=== PATIENT | female | born 1965 | race Caucasian/White ===

== ENCOUNTER 2021-06-22 09:42 | Outpatient (CLI) | payer OTHER, SELFPAY ==
[2021-06-22 10:00] LABS: Hematocrit 41.6 % (35.0-49.0); Mean Corpuscular HGB Conc 33.7 g/dL (32.0-36.0); Mean Corpuscular Hemoglobin 33.2 pg (27.0-31.0); Mean Corpuscular Volume 98.6 fL (78.0-102.0); Mean Platelet Volume 9.3 fl (9.2-11.8); Platelet Count Result 293 K/mm3 (150-420); Red Blood Count 4.22 M/mm3 (4.20-5.40); Red Cell Distribution Width 11.9 % (11.6-14.4)
[2021-06-22 10:41] LABS: Alanine Aminotransferase 19 U/L (14-59); Albumin Level 4.2 g/dL (3.4-5.0); Alkaline Phosphatase 81 U/L (46-116); Anion Gap 9 mmol/L (8-16); Aspartate Amino Transferase 15 U/L (15-37); Bilirubin,Total 0.4 mg/dL (0.00-1.00); Blood Urea Nitrogen 12 mg/dL (7-18); Calcium 9.4 mg/dL (8.5-10.1); Carbon Dioxide 31 mmol/L (21-32); Chloride 101 mmol/L (98-108); Cholesterol 239 mg/dL (0-200); Estimated Glomerular Filt Rate > 60; Glucose 112 mg/dL (70-99); HDL Direct 56 mg/dL (40-60); LDL Cholesterol Calculated 148 mg/dL (<130); Osmolality Calculated 292 mOsm/kg (285-295); Potassium 3.7 mmol/L (3.5-5.1); Sodium 141 mmol/L (136-145); Total Protein 7.3 g/dL (6.4-8.2); Triglycerides 175 mg/dL (0-150)
== END 2021-06-22 09:43 | disposition home or self-care (01) ==
LOC: CHSLAB 09:44
PROVIDERS: PCP Family Medicine; Visit Provider Family Medicine
DX: Z00.00 Encounter for general adult medical examination without abnormal findings (principal)
CPT/HCPCS: 36415; 80053; 80061; 85027

== ENCOUNTER 2021-11-04 12:38 | Outpatient (CLI) | payer OTHER, SELFPAY | END 2021-11-04 12:39 | disposition home or self-care (01) | PROVIDERS: PCP Family Medicine; Visit Provider Family Medicine | DX: H90.5 Unspecified sensorineural hearing loss (principal) | CPT/HCPCS: 92557; 92567 ==

== ENCOUNTER 2021-11-20 08:59 | Outpatient (RCR) | payer SELFPAY | END 2022-02-18 23:59 | disposition home or self-care (01) | LOC: ANHBWCAUD 08:59 | PROVIDERS: PCP Family Medicine; Visit Provider Family Medicine | DX: Z46.1 Encounter for fitting and adjustment of hearing aid (principal) | CPT/HCPCS: V5264 ==

== ENCOUNTER 2022-02-03 08:15 | Outpatient (RCR) | payer OTHER, SELFPAY | END 2022-05-04 23:59 | disposition home or self-care (01) | LOC: CHSAUDIO 08:15 | PROVIDERS: PCP Family Medicine; Visit Provider Family Medicine | DX: Z46.1 Encounter for fitting and adjustment of hearing aid (principal); H90.5 Unspecified sensorineural hearing loss | CPT/HCPCS: 92593 ==

== ENCOUNTER 2022-12-21 09:28 | Outpatient (CLI) | payer OTHER, SELFPAY ==
--- NOTE | 2022-12-21 09:49 | ECG_ITS ---
Measurements Intervals [place] Rate: 66 P: 87 [place]: 148 QRS: 88 QRSD: 74 T: 106 QT: 416 QTc: 438 Interpretive Statements SINUS RHYTHM CANNOT RULE OUT SEPTAL INFARCT, AGE INDETERMINATE T WAVE ABNORMALITY IN ANTEROLAT/HIGH LAT LEADS- CONSIDER ISCHEMIA ABNORMAL ECG NO PREVIOUS ECG AVAILABLE FOR COMPARISON Electronically Signed On 12-21-2022 12:30:53 CDT by Chavez Olson D.O.
[2022-12-21 09:56] LABS: Basophils Absolute Auto 0.13 K/mm3 (0.00-0.10); Basophils Percent Auto 0.9 % (0.0-1.0); Eosinophils Absolute Auto 1.36 K/mm3 (0.02-0.50); Eosinophils Percent Auto 9.2 % (1.0-6.0); Hematocrit 45.5 % (35.0-49.0); Hemoglobin 15.2 g/dL (12.0-15.0); Immature Granulocyte Absolute 0.05 K/mm3 (0.00-0.00); Immature Granulocyte Percent A 0.3 % (0.0-0.0); Lymphocytes Absolute Auto 3.76 K/mm3 (1.10-4.50); Lymphocytes Percent Auto 25.5 % (18.0-42.0); Mean Corpuscular HGB Conc 33.4 g/dL (32.0-36.0); Mean Corpuscular Hemoglobin 33.3 pg (27.0-31.0); Mean Corpuscular Volume 99.6 fL (78.0-102.0); Mean Platelet Volume 9.6 fl (9.2-11.8); Monocytes Absolute Auto 0.97 K/mm3 (0.10-0.90); Monocytes Percent Auto 6.6 % (2.0-11.0); Neutrophils Absolute Auto 8.5 K/mm3 (1.7-7.2); Neutrophils Percent Auto 57.5 % (50.0-70.0); Platelet Count Result 286 K/mm3 (150-420); Red Blood Count 4.57 M/mm3 (4.20-5.40); Red Cell Distribution Width 12.3 % (11.6-14.4); White Blood Count 14.7 K/mm3 (4.8-10.8)
[2022-12-21 10:26] LABS: Alanine Aminotransferase 24 U/L (14-59); Albumin Level 4.1 g/dL (3.4-5.0); Alkaline Phosphatase 76 U/L (46-116); Anion Gap 9 mmol/L (8-16); Aspartate Amino Transferase 18 U/L (15-37); Bilirubin,Total 1.5 mg/dL (0.00-1.00); Blood Urea Nitrogen 13 mg/dL (7-18); Calcium 9.6 mg/dL (8.5-10.1); Carbon Dioxide 30 mmol/L (21-32); Chloride 101 mmol/L (98-108); Cholesterol 160 mg/dL (0-200); Estimated Glomerular Filt Rate 60; Glucose 106 mg/dL (70-99); HDL Direct 76 mg/dL (40-60); LDL Cholesterol Calculated 62 mg/dL (<130); Osmolality Calculated 290 mOsm/kg (285-295); Potassium 3.6 mmol/L (3.5-5.1); Sodium 140 mmol/L (136-145); Thyroid Stimulating Hormone 2.44 uIU/mL (0.36-3.74); Total Protein 7.4 g/dL (6.4-8.2); Triglycerides 110 mg/dL (0-150)
[2022-12-21 10:27] LABS: Troponin I 265.6 ng/L (0.00-60.4)
== END 2022-12-21 09:29 | disposition home or self-care (01) ==
PROVIDERS: PCP Nurse Practitioner Family; Visit Provider Nurse Practitioner Family
DX: E78.5 Hyperlipidemia, unspecified (principal); J40 Bronchitis, not specified as acute or chronic; I10 Essential (primary) hypertension; R07.9 Chest pain, unspecified; R94.31 Abnormal electrocardiogram [ECG] [EKG]
CPT/HCPCS: 36415; 80053; 80061; 84443; 84484; 85025; 93005

== ENCOUNTER 2022-12-21 10:07 | Emergency (ER) | payer OTHER, SELFPAY ==
[2022-12-21] VITALS (11 sets, daily range): BP systolic 119–147; BP diastolic 78–89; PULSE 77–95; RESP 16–21; TEMP 36.6; O2SAT 90–95
--- NOTE | ~2022-12-21 | XR_ITS ---
XR chest 1V portable 12/21/2022 11:02 Indication: STEMI Procedure: AP portable chest Comparison: No prior studies for comparison. Findings: Heart size normal. No focal air space disease, pulmonary edema, pleural effusion or suspect ed pneumothorax. Impression: 1: No acute cardiopulmonary disease. Reviewed, dictated and finalized at location L. Impression: 1: No acute cardiopulmonary disease.
--- NOTE | 2022-12-21 10:20 | PC.NURSE ---
UPON ARRIVAL PATIENT'S O2 FOUND AT 87% ON ROOM AIR. PATIENT PLACED ON 3L NASAL CANULA FOR AN O2 OF 95%
[2022-12-21] MEDS: ASPIRIN 81 MG CHEWABLE TABLET 324 MG PO (10:27)
--- NOTE | 2022-12-21 10:27 | ED.CHESTPAIN ---
HPI - Chest Pain General Chief Complaint: Chest Pain Stated Complaint: abnormal ekg Time Seen by Provider: 12/21/22 10:11 Source: patient Mode of arrival: ambulatory Limitations: no limitations History of Present Illness HPI narrative: 57-year-old female, smoker with a history of hypertension, COPD, dyslipidemia,positive family history of coronary artery disease( mother had WI at age 46) presents to the ER with a 2 day history of -- left-sided chest pain radiating to her left shoulder and arm. The pain is intermittent. Today morning she went to her primary care physician who sent the patient to the ER for further management -- worsening shortness of breath no prior history of coronary artery disease. MD complaint: chest pain Onset (ago): day(s) ( Started 2 days ago) Timing of current episode: episodic Prior episodes: No Onset: during rest Pain location: left chest Pain radiation: left arm and left shoulder Severity: mild Quality: aching Relieving factors: nothing Exacerbating factors: nothing Associated symptoms: vomiting Treatment prior to arrival: none Risk Factors Coronary artery disease risk factors: smoking history, hyperlipidemia, hypertension and family history of CAD before age 50 Thoracic aortic dissection risk factors: longstanding hypertension Related Data On Oral Contraceptives: No Allergies Allergy/AdvReac Type Severity Reaction Status Date / Time No Known Allergies Allergy Verified 12/21/22 10:15 Review of Systems Review of Systems: All systems reviewed & are unremarkable except as noted in HPI and below Constitutional: Constitutional: Reports as per HPI and Reports no additional constitutional complaints Eyes: Eyes: Reports as per HPI and Reports no additional eye complaints ENT: Reports system reviewed and no additional complaints, except as documented and Reports as per HPI Cardiovascular: Cardiovascular: Reports as per HPI, Reports no additional cardiovascular complaints and Reports chest pain Respiratory: Respiratory: Reports as per HPI, Reports no additional respiratory complaints, Reports cough, Reports dyspnea and Reports wheezing Gastrointestinal: Gastrointestinal: Reports as per HPI and Reports vomiting Genitourinary: Genitourinary: Reports no additional female genitourinary complaints and Reports as per HPI Musculoskeletal: Musculoskeletal: Reports no additional musculoskeletal complaints and Reports as per HPI Integumentary/Breasts: Skin/Breast: Reports system reviewed and no additional complaints, except as docu and Reports as per HPI Neurologic: Reports system reviewed and no additional complaints, except as documented and Reports as per HPI Psychiatric: Psychiatric: Reports no additional psychiatric complaints and Reports as per HPI Endocrine: Endocrine: Reports no additional endocrine complaints and Reports as per HPI Hematologic/Lymphatic: Hematologic/Lymphatic: Reports no additional hematologic/lymphatic complaints and Reports as per HPI Allergic/Immunologic: Allergic/Immunologic: Reports no additional allergic/immunologic complaints and Reports as per HPI [facility] Past Medical History Medical History (Updated 12/21/22 @ 10:46 by Jono Tse MD) COPD (chronic obstructive pulmonary disease) Dyslipidemia Hypertension No active medical problems Surgical History Surgical History History of tubal ligation Hx of tonsillectomy Social History Social History Smoking packs per day: 0.5 Smoking cigarettes per day: 10.0 Years smoked: 45 Smoking pack-years: 22.50 Smoking status: Former smoker (pt reports she quit 1-2 weeks prior) Exam Const: General: healthy appearing Nutritional Appearance: thin Orientation/consciousness: patient oriented x3 Limitations: no limitations HENMT: Head: normal to inspection Ears: external ears normal Face/Nose/Sinus
--- NOTE | 2022-12-21 10:31 | PC.NURSE ---
DELAY IN HEPRIN, NO PT OR INR ORDERED IN OUTPATIENT LABS PRIOR TO ARRIVAL.
[2022-12-21] MEDS: HEPARIN SOD/D5W 100 UNITS/ML 25,000 UNITS/250 ML BAG 5.5 UNITS IV CONT (10:43)
[2022-12-21] MEDS: HEPARIN SODIUM 5,000 UNITS/ML VIAL 2500 UNITS IV PUSH (10:45)
[2022-12-21 10:51] LABS: Creatine Kinase 116 U/L (26-192); NT Pro B Type Natriuretic Pept 3381 pg/mL (0-125)
[2022-12-21 10:51] LABS: Prothrombin Time 11.4 Seconds (9.50-12.10)
[2022-12-21 11:09] LABS: Lactic Acid Reflex 1.6 mmol/L (0.4-2.0)
== END 2022-12-21 10:55 | disposition short-term general hospital (02) ==
PROVIDERS: Emergency Provider Internal Medicine Critical Care Medicine; PCP Family Medicine
DX: I21.09 ST elevation (STEMI) myocardial infarction involving other coronary artery of anterior wall (principal); J44.9 Chronic obstructive pulmonary disease, unspecified; I10 Essential (primary) hypertension; R06.02 Shortness of breath; E78.5 Hyperlipidemia, unspecified; Z87.891 Personal history of nicotine dependence
CPT/HCPCS: 36415; 71045; 82550; 83605; 83880; 85610; 85730; 96374; 99285; A9270; J1644

== ENCOUNTER 2022-12-21 11:23 | Inpatient (IN) | payer OTHER, SELFPAY ==
[2022-12-21] VITALS (12 sets, daily range): BP systolic 101–142; BP diastolic 50–93; PULSE 69–105; RESP 16–24; TEMP 36.2–36.8; O2SAT 91–98; BMI 17.9
--- NOTE | 2022-12-21 | ECHO_ITS ---
Patient Info Name: Raiza Joe Age: 57 years : 1965 Gender: Female Ht: 62 in Wt: 106 lbs BSA: 1.45 m2 HR: 101 bpm BP: 101 / 50 mmHg Heart Rhythm: Sinus Rhythm Technical Quality: Fair Exam Date: 12/21/2022 3:42 PM Exam Location: [facility] Pulmonary Exam Room: [facility] Patient Status: Inpatient Admit Date: 12/21/2022 Staff Ordering Physician: Parul Young MD (mina/inez) Supervisor [employer]: Kelly Boyle RDCS Attending Provider: Pino Denney MD Referring Physician: Hector HOLM; Exam Type: CA echo dop color flow w con Study Info Indications - NSTEMI Complete two-dimensional, color flow and Doppler transthoracic echocardiogram is performed with contrast to opacify the left ventricle and to improve the deliniation of the left ventricle endocardial borders. Contrast/Agitated Saline Contrast/Ag. Saline: Definity Amount: 2.00 ml Administered By: Kelly Boyle [facility] Existing IV Access: Yes IV Access Condition: patent with no signs of infiltration Summary 1. Left ventricular chamber dimension is normal. 2. Left ventricular systolic function is normal, estimated at 65-70%. 3. The left ventricular diastolic function is grade I diastolic dysfunction. 4. Right ventricular systolic function is normal. 5. No significant valvular disease. Left Ventricle Left ventricular chamber dimension is normal. Left ventricular systolic function is normal, estimated at 65-70%. There is no increased left ventricular wall thickness. The left ventricular diastolic function is grade I diastolic dysfunction. Right Ventricle Right ventricular chamber dimension is normal. Right ventricular systolic function is normal. Left Atria Left atrial chamber dimension is normal. Right Atria Right atrial chamber dimension is normal. Atrial Septum Intact interatrial septum visualized by color flow imaging. Aortic Valve The aortic valve is not well visualized. There is no aortic valve stenosis. There is no aortic valve regurgitation. Pulmonic Valve The pulmonic valve is not well visualized. Mitral Valve There is trace mitral valve regurgitation. Tricuspid Valve There is trace tricuspid valve regurgitation. Pericardium/Pleural There is no pericardial effusion. Inferior Vena Cava Normal inferior vena cava with >50% collapse upon inspiration consistent with normal right atrial pressure, 3 mmHg. Aorta The aortic root size at the sinus of Valsalva is normal. Left Ventricular Outflow Tract Name Value Normal LVOT 2D LVOT Diameter 1.99 cm LVOT Doppler LVOT Peak Gradient 5 mmHg LVOT Mean Gradient 3 mmHg LVOT VTI 19.25 cm LVOT VTI/AV VTI Ratio 1.02 LVOT Stroke Volume 59.59 ml LVOT CO 14.34 l/min LVOT CI 9.91 L/min/m2 Pulmonic Valve Name Value Normal PV Doppler --
--- NOTE | ~2022-12-21 | CT_ITS ---
EXAMINATION: CTA chest PE protocol DATE: 12/21/2022 13:57 CDT INDICATION: Shortness of breath TECHNIQUE: Computed tomographic angiography (CTA) of the chest was performed with 100 mL Omnipaque-35 0 intravenous contrast. The dose-length product was 156.90 mGy-cm. Maximum intensity projection 3D-re constructions of the aorta and other arteries were constructed by the technologist on a separate work station. COMPARISON: None. FINDINGS: Study is technically adequate without evidence for pulmonary embolism. There is atheroscler osis of the aorta. Heart size normal. No significant pleural or pericardial effusion. Mildly elevated left diaphragm. Calcified granulomas are present in the left lower lobe. No thoracic lymphadenopathy . There is emphysema. No endobronchial lesions. No pneumothorax. No focal airspace consolidation. IMPRESSION: 1. No acute cardiopulmonary disease. No evidence for pulmonary embolism. 2: Emphysema. Reviewed, dictated and finalized at location L.
--- NOTE | 2022-12-21 11:37 | ECG_ITS ---
Measurements Intervals [place] Rate: 69 P: 80 SD: 143 QRS: 86 QRSD: 82 T: 108 QT: 446 QTc: 480 Interpretive Statements SINUS RHYTHM WITH SINUS ARRHYTHMIA ANTEROSEPTAL INFARCT, AGE INDETERMINATE ST-T WAVE ABNORMALITY IN ANTEROLAT/HIGH LAT LEADS- CONSIDER ISCHEMIA BASELINE ARTIFACT- I, II, III, AVR, AVL, AVF ABNORMAL ECG COMPARED TO ECG 12/21/2022 09:58:15 SINUS ARRHYTHMIA NOW PRESENT Electronically Signed On 12-21-2022 14:24:08 CDT by Chavez Olson D.O.
[2022-12-21] MEDS: HEPARIN SOD/D5W 100 UNITS/ML 25,000 UNITS/250 ML BAG 6 UNITS IV CONT (12:32)
--- NOTE | 2022-12-21 12:33 | PC.NURSE ---
Heparin initiated at [place] and continued in the ED
--- NOTE | 2022-12-21 12:35 | ED.CHESTPAIN ---
HPI - Chest Pain General Chief Complaint: Chest Pain Stated Complaint: chest pain Time Seen by Provider: 12/21/22 11:44 History of Present Illness HPI narrative: 57-year-old female presented the ED from [facility] for evaluation for suspected STEMI. Patient reports that she had been having increased cough congestion and shortness of breath over the course of the last week. Patient is a longtime smoker and did quit smoking last week because of the symptoms. Patient was having some chest tightness and presented to [place] for evaluation. At that time patient's EKG was shown to have T wave inversions and patient was transferred to our ED initially as a STEMI. Case was discussed with cardiology and Dr. Young did not feel that the patient was an acute STEMI and would not go emergently to the Directory Assistance Operator but that she would see the patient immediately upon arrival to the ED. When the patient arrived EKG did show T wave inversions but no evidence of an acute STEMI. Patient's troponin from the outside hospital was found to be significantly elevated. Patient was on a heparin drip that had been started at the outside hospital and this was continued. Related Data Allergies Allergy/AdvReac Type Severity Reaction Status Date / Time No Known Allergies Allergy Verified 12/21/22 10:15 Review of Systems Review of Systems: All systems reviewed & are unremarkable except as noted in HPI and below PMFSH Past Medical History Medical History (Updated 12/21/22 @ 19:20 by Gordon Saxena MD) Chronic obstructive pulmonary disease Dyslipidemia Hypertension Tobacco dependence Surgical History Surgical History (Updated 12/21/22 @ 14:46 by Jumana Burleson PA-C) History of tonsillectomy History of tubal ligation Social History Social History (Updated 12/21/22 @ 14:46 by Jumana Burleson PA-C) Social History: Surrogate medical decision maker: Code status: Full code. Smoking packs per day: 10 Smoking cigarettes per day: 200.0 Years smoked: 45 Smoking pack-years: 450.00 Smoking status: Former smoker Tobacco type: cigarettes Second hand tobacco smoke exposure: No Smoking end date: 12/09/22 Alcohol intake: never Substance use: former Substance use type: marijuana Lack of Transportation: No Lack of Food: Never True Current Housing: I Have Housing Concerned About Future Housing: No Difficulty Paying Gas/Electric Bills: No Difficulty Paying for Meds: No Currently Unemployed: No Education: High School Diploma/GED Difficulty w/ Childcare or Family Care: No Spiritual care concerns: No Exam Narrative: APPEARANCE: Well appearing, no pain, no distress, well-nourished. HEAD: normocephalic, atraumatic. EYES: PERRLA/EOMI, conjunctivae clear. NOSE: Normal no drainage EARS:TMS clear with good light reflex. THROAT: Pharynx clear, no exudate. NECK: Supple. No adenopathy, no masses. RESPIRATORY: Wheeze CARDIOVASCULAR: Regular rate and rhythm without murmurs rubs or gallops. ABDOMINAL: Soft, nontender, nondistended, normal bowel sounds MUSCULOSKELETAL: Moves all extremities. Strength/ROM intact, No edema, No calf tenderness. NEURO: Alert. Cranial nerves II through XII intact. Grossly intact SKIN: Warm, dry. Normal Color Course Course Emergency Course: 57-year-old female presented the ED from an outside emergency department for evaluation of possible STEMI. Patient was eval by cardiology upon arrival to ED. Patient was already on heparin. This was continued. CTA was ordered to evaluate for possible pulmonary embolism and no PE was shown. Patient was treated with albuterol for possible COPD exacerbation as well. Case was discussed with the hospitalist patient was accepted for admission. Vital Signs Vital signs: Vital Signs Temperature 98.3 F 12/21/22 11:28 Pulse Rate 69 12/21/22 11:28 Respiratory Rate 16 12/21/22 11:28 Blood Pressure 139/71 12/21/22 11:28 Pulse Ox
[2022-12-21 13:05] LABS: Troponin I 0.156 ng/mL (0.000-0.034)
--- NOTE | 2022-12-21 13:52 | PM.CNCAR ---
Assessment and Plan Assessment and plan (1) NSTEMI (non-ST elevated myocardial infarction): Code(s): I21.4 - Non-ST elevation (NSTEMI) myocardial infarction Status: Acute Assessment and Plan: After review of patient's symptoms, EKG findings, degree of troponin elevation, it appears that patient likely had a recent myocardial infarction, which has likely completed given resolution of chest pain, the degree of troponin elevation at presentation, and findings of Q-waves in leads V1-V3. Given no STEMI on EKG or ongoing active chest pain, patient does not need emergent cardiac catheterization. This was discussed with our ER doctor, Dr. Saxena. Recommend treatment of NSTEMI with Heparin drip, ASA, high-intensity statin. Will load with Plavix 600mg x 1 followed by 75mg once daily. Obtain transthoracic echocardiogram. Continue to trend troponins until peak. Will keep NPO for possible cardiac catheterization tomorrow. (2) Hyperlipidemia: Code(s): E78.5 - Hyperlipidemia, unspecified Status: Acute Assessment and Plan: Patient on Atorvastatin 20mg at home, but will increase dose to high-intensity dose. (3) Benign essential hypertension: Code(s): I10 - Essential (primary) hypertension Status: Acute Assessment and Plan: Blood pressure is stable. Continue home medication of Amlodipine 5mg. History of Present Illness History of Present Illness Consult date/time: 12/21/22 13:52 Requesting physician: Gordon Saxena MD Consult reason: chest pain Reason For Visit: mi Narrative: We were initially consulted from [facility] ED for possible STEMI. This is a 57 year old female with hypertension, hyperlipidemia, tobacco dependence who presented to her PCP's office this morning and reported chest pain, and was instructed to go to the ER. Upon arrival to [facility], EKG showed concern for possible STEMI per ER doctor. STEMI alert activated and transfer to [facility] initiated. Upon my personal review of the [facility] ER EKG, it shows sinus rhythm, old septal infarct, T-wave abnormality in the anterolateral leads, but there is no ST elevation. I assessed the patient at bedside when she arrived to [facility] ER. Immediate EKG obtained in our ER which upon my personal review shows sinus rhythm with sinus arrhythmia, old septal infarction, T-wave abnormality in the anterolateral leads. There is no STEMI. No changes compared to EKG obtained earlier this morning from [facility]. STEMI alert was canceled. Upon my discussion with the patient, she reports she had substernal chest pain with some pain in her left arm that occurred starting on Tuesday. The last time she experienced chest pain was on the afternoon of 12/20. She denies having chest pain since then and currently denies any active chest pain. She is hemodynamically stable. Troponin at [facility] is 265.6 [reference range of 0 to 60]. First troponin here is 0.156. Review of Systems Review of Systems: All systems reviewed & are unremarkable except as noted in HPI and below (HPI) [facility] Past Medical History Medical History COPD (chronic obstructive pulmonary disease) Dyslipidemia Hypertension No active medical problems Surgical History Surgical History History of tubal ligation Hx of tonsillectomy Social History Social History Smoking packs per day: 0.5 Smoking cigarettes per day: 10.0 Years smoked: 45 Smoking pack-years: 22.50 Smoking status: Former smoker (pt reports she quit 1-2 weeks prior) Meds Home Medications and Allergies Home Medications Medication Instructions Recorded Confirmed Type albuterol sulfate 90 mcg/actuation See Rx Instructions .Route 08/20/22 12/21/22 Rx aerosol inhaler .COMPLEX #25.5 ea amlodipine 5 mg tablet See Rx Instructions .Route 08/24/22 12/21/22 Rx .COMPLEX
[2022-12-21] MEDS: CLOPIDOGREL BISULFATE 300 MG TABLET 600 MG PO (14:21)
[2022-12-21] MEDS: ATORVASTATIN 40 MG TABLET 80 MG PO (14:22)
--- NOTE | 2022-12-21 14:38 | PM.IMHP ---
H&P: HPI History of Present Illness Date/Time: 12/21/22 14:30 Chief Complaint: Chest pain. Narrative: This is a 57-year-old female smoker with hypertension, dyslipidemia, and chronic obstructive pulmonary disease who presented to the emergency department from [facility] with concerns for STEMI after she presented to their facility with chest pain. The patient provides the following history. She has not been feeling well for nearly a month with cough occasionally productive of yellowish sputum, increasing dyspnea on exertion, and generalized fatigue. Over the course of the last week she has had increasing cough, congestion, and shortness of breath and her symptoms were bad enough that she stopped smoking last week. She also has intermittent aching discomfort in the left anterior chest or in the left scapula, at times associated with shortness of breath, nausea, and weakness. She went to her doctor today and was prescribed an antibiotic and steroids for presumed URI. She also had labs an EKG done after which she was referred to the ED. EKG showed T-wave inversions in the anterior lateral leads in given ongoing chest discomfort and elevated troponins a STEMI was activated. She was seen on arrival by Dr. Young who did not feel this was an acute STEMI however she may have had a cardiac event sometime recently. She has been started on a heparin drip and will be NPO after midnight for probable cardiac catheterization tomorrow. Review of Systems Review of Systems: Twelve systems were reviewed. She has lost several lb this week. Appetite has not been great. Denies diarrhea. No sore throat. No sick contacts. No orthopnea or paroxysmal nocturnal dyspnea. No lower extremity edema or calf pain. Except as documented, all other systems were reviewed and are negative. [facility] Past Medical History Medical History Chronic obstructive pulmonary disease Dyslipidemia Hypertension Tobacco dependence Surgical History Surgical History History of tonsillectomy History of tubal ligation Social History Social History (Updated 12/22/22 @ 14:48 by Jumana Burleson PA-C) Social History: Code status: Full code. Smoking packs per day: 10 Smoking cigarettes per day: 200.0 Years smoked: 45 Smoking pack-years: 450.00 Smoking status: Former smoker Tobacco type: cigarettes Second hand tobacco smoke exposure: No Smoking end date: 12/09/22 Alcohol intake: never Substance use: former Substance use type: marijuana Lack of Transportation: No Lack of Food: Never True Current Housing: I Have Housing Concerned About Future Housing: No Difficulty Paying Gas/Electric Bills: No Difficulty Paying for Meds: No Currently Unemployed: No Education: High School Diploma/GED Difficulty w/ Childcare or Family Care: No Spiritual care concerns: No Meds Home Medications and Allergies Home Medications Medication Instructions Recorded Confirmed Type albuterol sulfate 90 mcg/actuation See Rx Instructions .Route 08/20/22 12/21/22 Rx aerosol inhaler .COMPLEX #25.5 ea amlodipine 5 mg tablet See Rx Instructions .Route 08/24/22 12/21/22 Rx .COMPLEX #90 tabs atorvastatin 20 mg tablet See Rx Instructions .Route 12/06/22 12/21/22 Rx .COMPLEX #30 tabs escitalopram oxalate 10 mg tablet See Rx Instructions .Route 12/06/22 12/21/22 Rx .COMPLEX #30 tabs Allergies Allergy/AdvReac Type Severity Reaction Status Date / Time No Known Allergies Allergy Verified 12/22/22 09:03 Vital Signs Vital Signs - 24 hr 12/21/22 11:28 12/21/22 11:35 12/21/22 12:01 Temperature 98.3 F Pulse Rate 69 80 81 Respiratory Rate 16 16 20 Blood Pressure 139/71 139/71 133/93 H Pulse Oximetry 98 97 95 Oxygen Delivery Nasal Cannula Oxygen Flow Rate 2 12/21/22 12:32 12/21/22 13:03 Temperature
--- NOTE | 2022-12-21 15:36 | PC.NURSE ---
This patient, Raiza Joe, was admitted to IMU Room 200-01 at 1500 via ER stretcher . Patient/family oriented to hospital policies and general routines including ID bracelet, bed and alarms, visiting hours, pain management, procedures, bathroom and other care routines, personal items, smoking policy, room service/diet, and visiting hours. Information on how to activate the Rapid Response Team has been discussed. Patient/Family are encouraged to report perceived risks to care and to ask questions if they do not understand what they are told or what they should do.
[2022-12-21] MEDS: PERFLUTREN LIPID MICROSPHERES 1.5 ML VIAL DILUTED TO 10 ML TOTAL VOLUME IV PUSH (16:10)
--- NOTE | 2022-12-21 16:19 | IVDEFINITY ---
Prior to administration of IV Definity the patient was educated on the risks and benefits of the imaging enhancing agent including potential adverse side effects. The patient verbalized understanding. Allergies were verified. No exclusion criteria were identified and at least one of the following inclusion criteria were met: 1) physician request, 2) patient technically difficult to image (per the [place] [employer] guidelines of two or more segments not discernable within the apical view), or 3) questionable left ventricular function. ?
[2022-12-21 16:33] LABS: Partial Thromboplastin Time 90.4 SECONDS (22.3-36.8)
[2022-12-21 18:13] LABS: Hemoglobin A1C 5.7 % (<5.7)
[2022-12-21 21:46] LABS: Partial Thromboplastin Time 84.2 SECONDS (22.3-36.8)
[2022-12-21] MEDS: ESCITALOPRAM OXALATE 10 MG TABLET PO (23:40)
[2022-12-21] MEDS: ASPIRIN 81 MG ENTERIC TABLET PO (23:40)
[2022-12-22] VITALS (42 sets, daily range): BP systolic 90–143; BP diastolic 55–87; PULSE 64–115; RESP 16–22; TEMP 36.2–36.8; O2SAT 89–98; BMI 17.9
[2022-12-22] MEDS: IPRATROPIUM BR 0.02% INH SOLN 0.5 MG/2.5 ML VIAL INHALATION ×4 (00:02→20:26)
[2022-12-22] MEDS: ALBUTEROL SULFATE NEB 2.5 MG/3 ML INH INHALATION ×4 (00:02→20:26)
[2022-12-22] MEDS: methylPREDNISolone SOD SUCC 125 MG VIAL 60 MG IV PUSH (00:36)
[2022-12-22] MEDS: guaiFENesin 12 HR 600 MG TABCR PO ×3 (00:36→21:41)
[2022-12-22 01:14] LABS: Troponin I 0.118 ng/mL (0.000-0.034)
[2022-12-22 01:44] LABS: Influenza A QL RT-PCR Negative (Negative); Influenza B QL RT-PCR Negative (Negative); RSV RNA, RT-PCR Negative (Negative); SARS-CoV-2 RNA PCR Negative (Negative)
[2022-12-22 04:39] LABS: Basophils Absolute Auto 0.1 K/mm3 (0.0-0.1); Basophils Percent Auto 0.6 % (0.2-1.2); Eosinophils Absolute Auto 0.1 K/mm3 (0-0.3); Hematocrit 42.1 % (37.0-47.0); Immature Granulocyte Absolute 0.04 K/mm3 (0.00-0.031); Immature Granulocyte Percent A 0.4 % (0-0.5); Lymphocytes Absolute Auto 1.36 K/mm3 (0.9-3.2); Lymphocytes Percent Auto 12.9 % (18.3-44.2); Mean Corpuscular HGB Conc 33.3 g/dl (32-36); Mean Corpuscular Hemoglobin 33.3 pg (26-34); Mean Platelet Volume 9.6 fl (7.4-10.4); Monocytes Absolute Auto 0.1 K/mm3 (0.1-0.6); Monocytes Percent Auto 1.2 % (2.6-8.5); Neutrophils Absolute Auto 8.9 K/mm3 (1.3-6.7); Neutrophils Percent Auto 83.9 % (45.5-73.1); Platelet Count Result 246 k/mm3 (150-375); Red Blood Count 4.21 M/mm3 (4.2-5.4); Red Cell Distribution Width 12.2 % (11.5-14.5); White Blood Count 10.6 K/mm3 (4.5-10.0)
[2022-12-22 05:08] LABS: Anion Gap 9 mmol/L (8-16); Blood Urea Nitrogen 17 mg/dL (7-17); Calcium 9.1 mg/dL (8.4-10.2); Carbon Dioxide 28 mmol/L (22-30); Chloride 99 mmol/L (98-107); Estimated CRCL calculation 52 ml/min; Estimated Glomerular Filt Rate > 60; Glucose 121 mg/dL (65-110); Magnesium 1.9 mg/dL (1.6-2.3); Potassium 3.4 mmol/L (3.4-5.0); Sodium 136 mmol/L (137-145)
[2022-12-22 05:45] LABS: Partial Thromboplastin Time 82.9 SECONDS (22.3-36.8)
[2022-12-22] MEDS: predniSONE 20 MG TABLET 40 MG PO (09:43)
[2022-12-22] MEDS: AMOXICILLIN/CLAVULANATE K 875-125 MG TAB 1 TABLET PO ×2 (09:43→21:40)
[2022-12-22] MEDS: amLODIPine BESYLATE 5 MG TABLET BY MOUTH (09:44)
--- NOTE | 2022-12-22 11:53 | PM.PNCARD ---
Progress Note: A&P Assessment and Plan (1) Non-ST elevation myocardial infarction (NSTEMI): Code(s): I21.4 - Non-ST elevation (NSTEMI) myocardial infarction Status: Acute Assessment and Plan: After review of patient's symptoms, EKG findings, degree of troponin elevation, it appears that patient likely had a recent myocardial infarction, which has likely completed given resolution of chest pain, the degree of troponin elevation at presentation, and findings of Q-waves in leads V1-V3. Given no STEMI on EKG or ongoing active chest pain, patient does not need emergent cardiac catheterization. This was discussed with our ER doctor, Dr. Saxena. Recommend treatment of NSTEMI with Heparin drip, ASA, high-intensity statin. Will load with Plavix 600mg x 1 followed by 75mg once daily. Obtain transthoracic echocardiogram. Continue to trend troponins until peak. Will keep NPO for possible cardiac catheterization tomorrow. 12/22: Cardiac catheterization discussed with the patient, including indication for procedure, procedure details, risks vs benefits, and alternative management options of medical therapy only. Patient agreeable to proceed with cath. Will plan for cardiac cath today. Further recommendations/plan pending results of cardiac cath. Echocardiogram reviewed and shows preserved LVEF, no significant valvular disease. (2) Hypertension: Code(s): I10 - Essential (primary) hypertension Status: Acute Assessment and Plan: Blood pressure is stable. Continue home medication of Amlodipine 5mg. (3) Dyslipidemia: Code(s): E78.5 - Hyperlipidemia, unspecified Status: Acute Assessment and Plan: Patient on Atorvastatin 20mg at home, but increased dose to high-intensity dose. (4) COPD exacerbation: Code(s): J44.1 - Chronic obstructive pulmonary disease with (acute) exacerbation Status: Acute Assessment and Plan: Management as per primary team. Subjective Date/time seen: 12/22/22 11:53 Interval history: Reason for visit: NSTEMI HPI: We were initially consulted from [place] ED for possible STEMI. This is a 57 year old female with hypertension, hyperlipidemia, tobacco dependence who presented to her PCP's office this morning and reported chest pain, and was instructed to go to the ER. Upon arrival to [facility], EKG showed concern for possible STEMI per ER doctor. STEMI alert activated and transfer to [place] initiated. Upon my personal review of the [place] ER EKG, it shows sinus rhythm, old septal infarct, T-wave abnormality in the anterolateral leads, but there is no ST elevation. I assessed the patient at bedside when she arrived to [place] ER. Immediate EKG obtained in our ER which upon my personal review shows sinus rhythm with sinus arrhythmia, old septal infarction, T-wave abnormality in the anterolateral leads. There is no STEMI. No changes compared to EKG obtained earlier this morning from [place]. STEMI alert was canceled. Upon my discussion with the patient, she reports she had substernal chest pain with some pain in her left arm that occurred starting on Tuesday. The last time she experienced chest pain was on the afternoon of 12/20. She denies having chest pain since then and currently denies any active chest pain. She is hemodynamically stable. Troponin at [place] is 265.6 [reference range of 0 to 60]. First troponin here is 0.156. Date of service 12/22: Has not had any recurrence of anginal type of chest pain but she does report musculoskeletal chest pain that occurred when the echo probe was on her chest. Has some shortness of breath with activity, is being treated for COPD exacerbation. Review of Systems Review of Systems: All systems reviewed & are unremarkable except as noted in HPI and below (HPI) Exam Const: General: comfortable and no acute distress Eyes: General: appearance normal, both eyes and all related structures Sclera: sclerae normal Neck: Neck: supp
--- NOTE | 2022-12-22 11:58 | WPDMODSED ---
Moderate Sedation Note-Pt Data Patient Data Diagnosis: NSTEMI Present Complaint: NSTEMI Procedure to be performed/Plan: Coronary angiography, left heart cath, +/- PCI Allergies Allergy/AdvReac Type Severity Reaction Status Date / Time No Known Allergies Allergy Verified 12/22/22 09:03 Home Medications Medication Instructions Recorded Confirmed Type albuterol sulfate 90 mcg/actuation See Rx Instructions .Route 08/20/22 12/21/22 Rx aerosol inhaler .COMPLEX #25.5 ea amlodipine 5 mg tablet See Rx Instructions .Route 08/24/22 12/21/22 Rx .COMPLEX #90 tabs atorvastatin 20 mg tablet See Rx Instructions .Route 12/06/22 12/21/22 Rx .COMPLEX #30 tabs escitalopram oxalate 10 mg tablet See Rx Instructions .Route 12/06/22 12/21/22 Rx .COMPLEX #30 tabs Current Medications: Active Medications Acetaminophen (Acetaminophen 325 Mg Tablet) 650 mg PO Q6H PRN PRN Reason: Mild Pain (1-3) or Fever Albuterol (Albuterol Sulfate (*Sp) Aerosol 1 Puff) 2 puff INHALATION Q4H PRN PRN Reason: Shortness Of Breath Or Wheezing Albuterol (Albuterol Sulfate Neb 2.5 Mg/3 Ml Inh) 2.5 mg INHALATION Q6HRT [facility] Last Admin: 12/22/22 07:39 Dose: 2.5 mg Amlodipine Besylate (Amlodipine Besylate 5 Mg Tablet) 5 mg BY MOUTH DAILY [facility] Last Admin: 12/22/22 09:44 Dose: 5 mg Amoxicillin/Clavulanate Potassium (Amoxicillin/Clavulanate K 875-125 Mg Tab) 1 tablet PO Q12H [facility] Last Admin: 12/22/22 09:43 Dose: 1 tablet Aspirin (Aspirin 81 Mg Enteric Tablet) 81 mg PO HS [facility] Last Admin: 12/21/22 23:40 Dose: 81 mg Atorvastatin Calcium (Atorvastatin 40 Mg Tablet) 80 mg PO HS [facility] Clopidogrel Bisulfate (Clopidogrel Bisulfate 75 Mg Tablet) 75 mg PO HS [facility] Escitalopram Oxalate (Escitalopram Oxalate 10 Mg Tablet) 10 mg PO HS [facility] Last Admin: 12/21/22 23:40 Dose: 10 mg Guaifenesin (Guaifenesin 12 Hr 600 Mg Tabcr) 600 mg PO Q12HR [facility] Last Admin: 12/22/22 09:43 Dose: 600 mg Heparin Sodium (Porcine) (Heparin Sodium 5,000 Units/Ml Vial) 2,000 units IV PUSH PRN PRN PRN Reason: aPTT 55 - 70 seconds Heparin Sodium (Porcine) (Heparin Sodium 5,000 Units/Ml Vial) 4,000 units IV PUSH PRN PRN PRN Reason: aPTT less than 55 seconds Heparin Sodium/Dextrose (Heparin Sodium/D5w 100 Units/Ml) 25,000 units in 250 mls @ 6 mls/hr IV CONT .Q24H [facility]; Protocol Last Titration: 12/22/22 06:53 Dose: 600 units/hr, 6 mls/hr Ipratropium Cadwell (Ipratropium Br 0.02% Inh Soln 0.5 Mg/2.5 Ml Vial) 0.5 mg INHALATION Q6HRT [facility] Last Admin: 12/22/22 07:39 Dose: 0.5 mg Prednisone (Prednisone 20 Mg Tablet) 40 mg PO DAILY@0800 [facility] Stop: 12/26/22 07:59 Last Admin: 12/22/22 09:43 Dose: 40 mg Sedation/Anesthesia: No previous sedation/anesthesia problems (including family history). [facility] Past Medical History Medical History Chronic obstructive pulmonary disease Dyslipidemia Hypertension Tobacco dependence Surgical History Surgical History History of tonsillectomy History of tubal ligation Social History Social History Social History: Surrogate medical decision maker: Code status: Full code. Smoking packs per day: 10 Smoking cigarettes per day: 200.0 Years smoked: 45 Smoking pack-years: 450.00 Smoking status: Former smoker Tobacco type: cigarettes Second hand tobacco smoke exposure: No Smoking end date: 12/09/22 Alcohol intake: never Substance use: former Substance use type: marijuana Lack of Transportation: No Lack of Food: Never True Current Housing: I Have Housing Concerned About Future Housing: No Difficulty Paying Gas/Electric Bills: No Difficulty Paying for Meds: No Currently Unemployed: No Education: High School Diploma/GED Difficulty w/ Childcare or Family Care: No Spiritual care concerns: No Mod Sed Physical Exam Physic
--- NOTE | 2022-12-22 12:57 | PM.IMPN ---
Progress Note: A&P Assessment and Plan (1) Non-ST elevation myocardial infarction (NSTEMI): Code(s): I21.4 - Non-ST elevation (NSTEMI) myocardial infarction Status: Acute Assessment and Plan: Patient presents with cough, congestion and shortness of breath. She also is having chest tightness with symptoms that sound similar to possibly panic attack. However her EKG showed normal sinus rhythm with sinus arrhythmia and ST T-wave abnormalities in anterior 0 lateral and high lateral leads concerning for ischemia. Echocardiogram showed EF of 65-70% with grade 1 diastolic dysfunction. She was treated medically and is currently on aspirin, Lipitor, Plavix and heparin drip. Cardiology was consulted and patient is going for heart catheterization today. (2) COPD exacerbation: Code(s): J44.1 - Chronic obstructive pulmonary disease with (acute) exacerbation Status: Acute Assessment and Plan: Patient was few scattered wheezes still. States her breathing is much improved. Suspect she may have had a COPD exacerbation resulting in the some of her symptoms. She is on nebulizer treatments. She is on prednisone. Augmentin also has been started for acute bronchitis. Wean off oxygen as tolerated (3) Hypertension: Code(s): I10 - Essential (primary) hypertension Status: Acute Assessment and Plan: Patient's blood pressure was reviewed on 12/22 Blood pressure remains well controlled. Will continue current medications. (4) Tobacco dependence: Code(s): F17.200 - Nicotine dependence, unspecified, uncomplicated Status: Acute Assessment and Plan: Patient was educated extensively about the benefits of smoking cessation. (5) Dyslipidemia: Code(s): E78.5 - Hyperlipidemia, unspecified Status: Acute Assessment and Plan: AST and ALT were normal. Continue Lipitor. Plan DVT prophylaxis -heparin drip Code status -full Subjective Date/time seen: 12/22/22 12:57 Interval history: 57yo female with HLD, anxiety/depression and tobacco abuse here for SOB and CP. Assuming care. Chart reviewed. Patient has been having dyspnea on exertion cough. She has been feeling very anxious and having perioral numbness. She is not on oxygen at home. She does have an albuterol rescue inhaler that that she has been on for the past 1.5 years. This was started because she had nocturnal cough. Patient has been smoking since age 10 up to a pack a day. She states that she quit just recently. Exam Narrative: AF 97.9 112/69 82 18 94% ra Gen - NARD Chest -scattered expiratory wheezes. CV - RRR S1/S2. Telemetry showing 3B run of nonsustained V-tach Abd - Soft, NT/ND, Positive BS Ext - No pedal edema. 2+ DP pulses bilaterally Neuro - Alert and oriented. Nonfocal exam. Psych - Nml mood and affect Skin - Warm and dry Objective Data Vital Signs Vital Signs: Vital Signs - 24 hr 12/21/22 13:03 12/21/22 15:13 12/21/22 17:08 Temperature 98.1 F 97.7 F Pulse Rate 85 97 Respiratory Rate 18 18 Blood Pressure 142/83 H 109/65 Pulse Oximetry 93 92 93 Oxygen Delivery Oxygen Flow Rate Fraction of Inspired Oxygen 12/21/22 16:00 12/21/22 16:00 12/21/22 18:00 Temperature Pulse Rate 105 H 96 Respiratory Rate Blood Pressure Pulse Oximetry 96 Oxygen Delivery Nasal Cannula Oxygen Flow Rate 2 Fraction of Inspired Oxygen 12/21/22 20:00 12/21/22 20:00 12/21/22 23:55 Temperature 97.1 F L 97.2 F L Pulse Rate 98 98 87 Respiratory Rate 24 H 24 H 22 H Blood Pressure 138/84 122/71 Pulse Oximetry 91 91 93 Oxygen Delivery Nasal Cannula Oxygen Flow Rate 2 Fraction of Inspired Oxygen 12/22/22 00:03 12/22/22 00:10 12/22/22 00:12 Temperature Pulse Rate 86 86 92 Respiratory Rate 18 18 Blood Pressure Pulse Oximetry 98 Oxygen Delivery Nasal Cannula Oxygen Flow Rate 2 Fraction of Insp
--- NOTE | 2022-12-22 12:58 | WPDCARDPROC ---
Cardiac Cath Procedure Note Date of procedure:: 12/22/22 Performing physician:: CATHETERIZATION LABORATORY REPORT Procedure Date: 12/22/2022 Engineer Systems: Parul Young M.D., [facility]? Referring Physician: Parul Young M.D. Anesthesia: Versed and Fentanyl were ordered and given in my presence at 12:23, procedure ended at 12:42. Supervision of nurse monitored moderate sedation with Versed and Fentanyl was provided for 19 minutes. Total of Versed 1mg and Fentanyl 25mcg were administered by the Music Therapy Specialist RN Iris Purvis. Pre-op Diagnosis: Coronary artery disease Post-op Diagnosis: 1. No obstructive coronary arteries 2. Elevated left ventricular end-diastolic pressure of 24mmHg Procedure(s): Left heart catheterization with coronary angiography Access Site: Right radial artery Brief History and Clinical Indications: Patient is a 57 year old female who is referred for [facility] for NSTEMI. All risks, benefits and alternatives to left heart catheterization with or without percutaneous coronary intervention was discussed at length with the patient. Risk of complications including but not limited to bleeding, infection, arrhythmia, stroke, worsening kidney function, blood loss, groin hematoma, limb loss, emergency coronary artery bypass grafting, and even were discussed with the patient and all questions were answered. The patient understood and wished to proceed. Time out called, patient name, date of , medical record number, allergies, procedure performed, identify Engineer Systems, patient and staff member concurred with accurate data, procedure carried on. Findings: LEFT HEART CATHETERIZATION FINDINGS: 1. Left main: Large caliber vessel. The left main coronary artery is widely patent without any significant obstructive disease. 2. Left anterior descending: Large caliber vessel that tapers to small caliber distally. The LAD and the diagonal branches have mild luminal irregularities without any significant obstructive angiographic disease. 3. Left circumflex: Large caliber vessel. The left circumflex artery and the main marginal branches have mild luminal irregularities without any significant obstructive angiographic disease. 4. Right coronary artery: Large caliber vessel. The RCA is calcific. The RCA has mild luminal irregularities without any significant obstructive angiographic disease. The RCA is the dominant vessel. 5. Left ventricle: A. End-diastolic pressure 24 mmHg. B. LV gram deferred. C. No significant gradient across aortic valve on catheter pullback. Description of Procedure: Informed consent signed and placed in the chart. Patient transferred to clinical lab technologist room. Prepped and draped in usual sterile fashion. 2% lidocaine injected subcutaneously in right wrist area. 22-gauge venipuncture catheter used to access the right radial artery under ultrasound guidance. 6-FR slender sheath placed in right radial artery. Nitroglycerine and Verapamil were given intraarterial through the sheath. Versacore wire advanced under fluoroscopy 5F Tig 4 diagnostic catheter engaged Left Main Coronary Artery. 5F Tig 4 diagnostic catheter engaged Right Coronary Artery Multiple orthogonal angiogram obtained and reviewed 5F Pigtail diagnostic catheter crossed aortic valve to obtain LVEDP, LV angiogram deferred. Hemostasis was achieved by application of TR band. ? Assessment: 1. No obstructive coronary arteries 2. Elevated left ventricular end-diastolic pressure of 24mmHg Post Operative Condition: Stable No significant blood loss Disposition: Floor Plan: The patient will be monitored in the recovery area. Transfer back to the floor after post cath bed rest is completed. Continue aggressive medical therapy and risk factor modification. See consult note for additional recommendations / plan. ? Parul Young M.D. Interventional Cardiology
--- NOTE | 2022-12-22 15:35 | PC.NURSE ---
On 12/22/22, the student, Elaina GEE [facility], provided care and completed [facility] documentation on this patient. I have reviewed the student's documentation and agree with the findings.
[2022-12-22] MEDS: POTASSIUM CHLORIDE 20 MEQ ER TABLET 40 MEQ PO (15:46)
[2022-12-22] MEDS: SODIUM CHLORIDE 0.9% IV 1,000 ML 125 ML IV CONT (15:47)
[2022-12-22] MEDS: ASPIRIN 81 MG ENTERIC TABLET PO (21:40)
[2022-12-22] MEDS: ATORVASTATIN 40 MG TABLET 80 MG PO (21:41)
[2022-12-22] MEDS: ESCITALOPRAM OXALATE 10 MG TABLET PO (21:41)
[2022-12-23] VITALS (18 sets, daily range): BP systolic 116–121; BP diastolic 47–68; PULSE 72–99; RESP 16–20; TEMP 36.1–37.2; O2SAT 93–98
[2022-12-23] MEDS: ALBUTEROL SULFATE NEB 2.5 MG/3 ML INH INHALATION ×3 (02:39→13:07)
[2022-12-23] MEDS: IPRATROPIUM BR 0.02% INH SOLN 0.5 MG/2.5 ML VIAL INHALATION ×3 (02:40→13:11)
[2022-12-23 05:06] LABS: Albumin Level 3.6 g/dL (3.5-5.1); Anion Gap 6 mmol/L (8-16); Blood Urea Nitrogen 21 mg/dL (7-17); Calcium 8.7 mg/dL (8.4-10.2); Carbon Dioxide 29 mmol/L (22-30); Chloride 104 mmol/L (98-107); Estimated CRCL calculation 55 ml/min; Estimated Glomerular Filt Rate > 60; Glucose 125 mg/dL (65-110); Magnesium 1.8 mg/dL (1.6-2.3); Phosphorus 3.1 mg/dL (2.5-4.5); Potassium 4.2 mmol/L (3.4-5.0); Sodium 139 mmol/L (137-145)
[2022-12-23] MEDS: guaiFENesin 12 HR 600 MG TABCR PO (08:35)
[2022-12-23] MEDS: amLODIPine BESYLATE 5 MG TABLET BY MOUTH (08:35)
[2022-12-23] MEDS: predniSONE 20 MG TABLET 40 MG PO (08:35)
[2022-12-23] MEDS: AMOXICILLIN/CLAVULANATE K 875-125 MG TAB 1 TABLET PO (08:35)
--- NOTE | 2022-12-23 11:46 | P.CDI_ITS ---
CDI Query Clarification Request BMI 17.9 Nutritional Diagnostic Statement Moderate protein calorie malnutrition related to loss of appetite, shortness of breath as evidenced by weight loss -5%/1 month; intake<75% meals > 1 month. Please refer to comprehensive nutrition assessment for further information. Please clarify severity of protein calorie malnutrition if known: * Mild * Moderate * Severe * Other/Unspecified
--- NOTE | 2022-12-23 15:30 | PM.DS ---
DS: Admitting Diagnosis Discharge Date 12/23/22 Admitting Diagnosis Shortness of breath and chest pain DS: Discharge Diagnosis Discharge Diagnosis (1) Non-ST elevation myocardial infarction (NSTEMI): Code(s): I21.4 - Non-ST elevation (NSTEMI) myocardial infarction Status: Acute (2) COPD exacerbation: Code(s): J44.1 - Chronic obstructive pulmonary disease with (acute) exacerbation Status: Acute (3) Hypertension: Code(s): I10 - Essential (primary) hypertension Status: Acute (4) Tobacco dependence: Code(s): F17.200 - Nicotine dependence, unspecified, uncomplicated Status: Acute (5) Dyslipidemia: Code(s): E78.5 - Hyperlipidemia, unspecified Status: Acute (6) Moderate protein-calorie malnutrition: Code(s): E44.0 - Moderate protein-calorie malnutrition Status: Acute DS: Summary Hospital Course Reason for hospitalization: 57yo female with HLD, anxiety/depression and tobacco abuse here for SOB and CP. Please see N&P for details. Hospital Course: Patient presented with cough, congestion and shortness of breath.? She also is having chest tightness with symptoms that sound similar to possibly panic attack.? However her EKG showed normal sinus rhythm with sinus arrhythmia and ST T-wave abnormalities in anterior-lateral and high lateral leads concerning for ischemia.? Echocardiogram showed EF of 65-70% with grade 1 diastolic dysfunction.? She was treated medically with aspirin, Lipitor, Plavix and heparin drip.? Cardiology was consulted and patient went for heart catheterization. LHC showed no obstructive coronary disease. Patient with wheezing on admission.? Suspect she may have had a COPD exacerbation resulting in the some of her symptoms.? She was treated with nebulizer treatments, prednisone and Augmentin for acute bronchitis.?She was able to be weaned off oxygen. Patient was educated extensively about the benefits of smoking cessation. Patient had moderate protein calorie malnutrition related to loss of appetite, shortness of breath with weight loss of 5% and decrease intake over the past month. She had clinical improvement and was able to be discharged home on 12/23/22. Status at Discharge Cognitive/behavioral status at discharge: stable Time Spent with Patient Time attestation: Total time spent providing and/or coordinating discharge services: 35 minutes Time spent: Greater than 30 minutes Exam Narrative: AF 99.0 121/47 92 18 95% ra Gen - NARD Chest - minor scattered expiratory wheezes. CV - RRR S1/S2. Telemetry showing no significant dysrhythmias Abd - Soft, NT/ND, Positive BS Ext - No pedal edema. Psych - Nml mood and affect Skin - Warm and dry DS: Data Data Completed and Pending Labs on day of discharge: Labs from last 24 hours 12/23/22 04:46 Sodium 139 Potassium 4.2 Chloride 104 Carbon Dioxide 29 Anion Gap 6 L BUN 21 H Creatinine 0.70 Estim Creat Clear Calc 55 Estimated GFR > 60 Glucose 125 H Calcium 8.7 Phosphorus 3.1 Magnesium 1.8 Albumin 3.6 Discharge Plan Discharge Attending physician on discharge: Dimas Bennett Consulting providers: Parul Young Discharging Clinician: Dimas Bennett Anticipated Discharge Date/Time: 12/23/22 15:36 Patient Disposition: Home, Self-Care Activity: other - see discharge instructions Diet: heart healthy Discharge Instructions: Please complete your antibiotic course even if you are starting to feel well. Contact your doctor or call 911 and come to the Emergency Room if you have any lightheadedness with standing or other worrisome symptoms. Avoid NSAIDs (ibuprofen, naproxen, Aleve). Tylenol is safe to take. Follow-up with your primary care provider in 1-2 weeks. Please call for appointment. Follow-up with Cardiology. Please call for an appointment. Follow-up with Pulmonary in 2-4 weeks. Please call for an appointme
== END 2022-12-23 16:19 | disposition home or self-care (01) | DRG 281 ==
LOC: ANHED 11:46 → ANHIMU 14:04
PROVIDERS: Internal Medicine; Physician Assistant; Admitting Provider Chiropractor; Emergency Provider Emergency Medicine; PCP Family Medicine; Visit Provider Internal Medicine
PROC: 4A023N7 Measurement of Cardiac Sampling and Pressure, Left Heart, Percutaneous Approach (ICD-10-PCS; CPT 93452; principal; 2022-12-22 11:30)
DX: I21.A9 Other myocardial infarction type (principal); E44.0 Moderate protein-calorie malnutrition; J44.1 Chronic obstructive pulmonary disease with (acute) exacerbation; Z68.1 Body mass index [BMI] 19.9 or less, adult; J44.0 Chronic obstructive pulmonary disease with (acute) lower respiratory infection; J20.9 Acute bronchitis, unspecified; Z20.822 Contact with and (suspected) exposure to COVID-19; E78.5 Hyperlipidemia, unspecified; I10 Essential (primary) hypertension; F41.8 Other specified anxiety disorders; Z87.891 Personal history of nicotine dependence
CPT/HCPCS: 36415; 71275; 80048; 80069; 83036; 83735; 84484; 85025; 85730; 87637; 93005; 93458; 94640; 96365; 99285; A9270; C1769; C1887; C1894; C8929; G0378; J1644; J2250; J2305; J2930; J3010; J7030; J7512; Q9957; Q9967

== ENCOUNTER 2023-01-25 09:47 | Outpatient (CLI) | payer OTHER, SELFPAY ==
[2023-01-25] VITALS (8 sets, daily range): PULSE 73–87; O2SAT 92–94
--- NOTE | 2023-01-25 10:50 | SIXMINWLK ---
Six Minute Walk Test PFT: Six Minute Walk Start: 01/25/23 10:24 Freq: Status: Active Protocol: RPE Activity Type Activity Date Activity User E-sign Co-sign Detail Recorded Client Recorded Date Recorded By Document 01/25/23 10:00 KRM [id number] 01/25/23 10:49 KRM Document 01/25/23 10:02 KRM [id number] 01/25/23 10:49 KRM Document 01/25/23 10:03 KRM [id number] 01/25/23 10:49 KRM Document 01/25/23 10:04 KRM [id number] 01/25/23 10:49 KRM Document 01/25/23 10:05 KRM [id number] 01/25/23 10:49 KRM Document 01/25/23 10:06 KRM [id number] 01/25/23 10:49 KRM Document 01/25/23 10:07 KRM [id number] 01/25/23 10:49 KRM Document 01/25/23 10:09 KRM [id number] 01/25/23 10:49 KRM 01/25/23 01/25/23 01/25/23 10:00 10:02 10:03 Six Minute Walk Gender F F F Age 57 59 57 Race White White White Six Minute Walk Post Test -Pulse Rate (60-100 beats/min) -Rating of Perceived Dyspnea (PD) -Rate of Perceived Exertion (PE) -Pulse Oximetry (90-100 %) Six Minute Walk Baseline -Pulse Rate (60-100 beats/min) 76 82 86 -Rate of Perceived Exertion (PE) 6 Very, very light -Pulse Oximetry (90-100 %) 94 93 92 Number of Complete Laps ( 1 Lap = 100 Feet, Enter Total Feet) Stopped/Paused During Testing - Enter Comment if Yes 01/25/23 01/25/23 01/25/23 10:04 10:05 10:06 Six Minute Walk Gender F F F Age 57 59 57 Race White White White Six Minute Walk Post Test -Pulse Rate (60-100 beats/min) -Rating of Perceived Dyspnea (PD) -Rate of Perceived Exertion (PE) -Pulse Oximetry (90-100 %) Six Minute Walk Baseline -Pulse Rate (60-100 beats/min) 87 84 73 -Rate of Perceived Exertion (PE) -Pulse Oximetry (90-100 %) 92 92 92 Number of Complete Laps ( 1 Lap = 100 Feet, Enter Total Feet) Stopped/Paused During Testing - Enter Comment if Yes 01/25/23 01/25/23 10:07 10:09 Six Minute Walk Gender F F Age [age] Race White White Six Minute Walk Post Test -Pulse Rate (60-100 beats/min) 76 -Rating of Perceived Dyspnea (PD) +1 Mild, Noticeable to the Participant but Not to an Observer -Rate of Perceived Exertion (PE) 7 -Pulse Oximetry (90-100 %) 93 Six Minute Walk Baseline -Pulse Rate (60-100 beats/min) 86 -Rate of Perceived Exertion (PE) -Pulse Oximetry (90-100 %) 94 Number of Complete Laps ( 1 Lap = 100 600 Feet, Enter Total Feet) Stopped/Paused During Testing - Enter No Comment if Yes
--- NOTE | 2023-01-28 09:39 | WPDSIXMINUTE ---
Six Minute Walk Procedure Procedure Performed Pulmonary Stress Test (6 min walk) Six Minute Walk Six Minute Walk: DATE OF SERVICE: 01/25/2023 REQUESTING: Deloris Messer PA-C REASON FOR TESTING: [email or web address] SIX MINUTE WALK This test was conducted per ATS guidelines. The initial saturation was 94%, and initial heart rate was 76 beats per minute. The patient walked without stopping, completing 600 ft/ 182.8 meters. The saturation ranged from 92-94%, never dropped lower. Heart rate maximum was 86 beats per minute. She complained of mild dyspnea. IMPRESSION: This study shows no oxygen desaturation requiring supplemental oxygen. The patient walked less distance than expected for her age, 182.8 meters. Clinical correlation is recommended. Karlie Baum MD
--- NOTE | 2023-01-28 09:48 | WPDPFTINT ---
PFT Procedure Performed PFT Procedure Performed Spirometry with Pre/Post Bronchodilator Plethysmography (Lung Vol) Diffusing Cap (DLCO) Flow Vol Loop PFT Interpretation DOS: 01/25/2023 REQUESTING: Deloris Messer PA-C REASON FOR TESTING: emphysema PULMONARY FUNCTION TESTS Results are reliable and reproducible. Spirometry: FEV1 is 1.07 L, 48% predicted, extremely low. FVC is 2.57 L, 93% predicted, normal. FEV1 / FVC ratio 42%, low, consistent with airflow obstruction. After bronchodilator there is a 7% increase in FEV1, post bronchodilator FEV1 is 1.14 L, 51%, negligible change. There is an 11% increase in the FVC, 2.85 L, 103% predicted, not statistically significant. 5.7 Lung volumes: The total lung capacity is 5.81 L, 129% predicted, consistent with mild hyperinflation. The residual volume is 3.23 L, 193% predicted, severe air trapping. RV/TLC is 56%, consistent with severe air trapping. Airway resistance is 5.78, 426% predicted, elevated. Diffusion: DLCO is 6.5, 40% predicted, severely decreased. DLCO/VA is 1.79, 46%, remains low when corrected for alveolar volume. The alveolar volume is 3.62 L. Flow volume loop: There is coving of the expiratory limb consistent with airflow obstruction. IMPRESSION: This study shows severe obstructive ventilatory impairment without response to bronchodilator, mild hyperinflation, severe air trapping and severe diffusion impairment. This study is consistent with emphysema. There is no prior study for comparison. Karlie Baum MD
== END 2023-01-25 09:48 | disposition home or self-care (01) ==
PROVIDERS: PCP Nurse Practitioner Family; Visit Provider Physician Assistant
DX: J43.9 Emphysema, unspecified (principal)
CPT/HCPCS: 94060; 94618; 94726; 94729

== ENCOUNTER 2023-08-10 12:20 | Outpatient (CLI) | payer OTHER, SELFPAY | END 2023-08-10 12:21 | disposition home or self-care (01) | LOC: ANHBWCAUD 12:21 | PROVIDERS: PCP Family Medicine; Visit Provider Family Medicine | DX: H90.3 Sensorineural hearing loss, bilateral (principal) | CPT/HCPCS: 92557; 92567 ==

== ENCOUNTER 2023-08-10 13:30 | Outpatient (RCR) | payer OTHER, SELFPAY | END 2023-10-18 23:59 | disposition home or self-care (01) | LOC: ANHBWCAUD 13:30 | PROVIDERS: PCP Family Medicine | DX: Z46.1 Encounter for fitting and adjustment of hearing aid (principal) | CPT/HCPCS: 99199; V5264 ==

== ENCOUNTER 2023-12-26 11:59 | Outpatient (CLI) | payer OTHER, SELFPAY ==
--- NOTE | ~2023-12-26 | CT_ITS ---
CT Scan of the Chest without Contrast: Clinical Indication: Lung cancer screening, nicotine dependence Technique: Contiguous sections were acquired throughout the chest without intravenous contrast. Dose reduction technique was used on this scan by utilizing automated exposure control and iterative recon struction technique. The dose-length product (DLP) was 61.85 mGy-cm. COMPARISON: 12/21/2022 Findings: There is no evidence of any significant mediastinal, hilar or axillary lymphadenopathy. The mediastin al soft tissues appear normal. There is no evidence of pleural or pericardial effusion. Moderate to advanced emphysema. Calcified left basilar granulomas are present. No suspicious pulmonar y nodule. Images through the upper abdomen reveal no abnormalities. Impression: Lung RADS 2: Benign appearance. 12 month follow-up screening CT advised. Moderate to advanced emphysema. Reviewed, dictated and finalized at [facility]. Impression: Lung RADS 2: Benign appearance. 12 month follow-up screening CT advised. Moderate to advanced emphysema.
== END 2023-12-26 12:00 | disposition home or self-care (01) ==
LOC: CHSIMG 12:00
PROVIDERS: PCP Family Medicine; Visit Provider Physician Assistant
DX: Z12.2 Encounter for screening for malignant neoplasm of respiratory organs (principal); Z87.891 Personal history of nicotine dependence; J43.9 Emphysema, unspecified
CPT/HCPCS: 71271

== ENCOUNTER 2024-05-21 07:04 | Outpatient (CLI) | payer OTHER, SELFPAY ==
--- OUTSIDE RECORDS SUMMARY | 2024-05-21 07:07 | XMS_ITS | Clinical Summary ---
Author Organization [facility] [address] [facility] Address [address] [place] [address] Care Team Providers Care Traveling Crane Operator Name Role Phone Nato Fitzgerald DO Primary Care Provider Allergies No known active allergies Medications melatonin 3 mg capsule Take 3 mg by mouth as needed Active aspirin 81 mg enteric coated tablet Take 1 tablet (81 mg total) by mouth nightly at bedtime. 12/23/2022 Active atorvastatin (LIPITOR) 40 mg tablet Take 2 tablets (80 mg total) by mouth nightly 12/23/2022 Active escitalopram (LEXAPRO) 10 mg tablet Take 1 tablet (10 mg total) by mouth daily 12/15/2022 Active Active Problems Problem Noted Date Diagnosed Date NSTEMI (non-ST elevated myocardial infarction) ( 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 Reviewed med SE & scheduling. Bilateral low back pain without sciatica 019 Assessment & Plan (01/27/2019 3:42 PM CDT): Occasional/intermittent LBP. Cyclobenzaprine sent. Reviewed med SE & scheduling. Anxiety and depression 01/26/2019 Assessment & Plan (01/26/2019 9:12 AM CDT): Discussed at length. Declines medications and/or referral to psych/psychologist. Has counselor that she has seen that she feels she can call if needed. Close w/sisters and able to talk to them. Denies thoughts of SI/HI on direct questioning. Reviewed red flags. Annual physical exam 01/26/2019 Assessment & Plan (01/26/2019 9:11 AM CDT): 1. Eat a healthy diet: focus on lean meats and proteins, more fruits, vegetables and whole grains and low in sugars and fats. Limit red meat and avoid processed meat. 2. Maintain a healthy weight; avoid being overweight. Aim for a normal body mass index (BMI) of 18.5-24.9. Help learning to eat healthier, we can set up appointment with zoning assistant/occupational therapy assist. 3. Have an active lifestyle, strive for 30 minutes of moderate exercise 5 times a week and strength or resistance training at least twice a week. 4. Use broad-spectrum (UVA+UVB) sunscreen with SPF 30 or greater, is water resistant, limit time spent in the sun (10 am-4pm), wear hat, wear UV protective clothing, wear sunglasses. Never use a tanning bed. Skin that was irradiated may be more sensitive over your lifetime. 5. Do not smoke or chew tobacco; participate in a smoking cessation program. 6. Limit alcohol intake, 1 drink per day for a woman Need for influenza vaccination 01/25/2019 Assessment & Plan (01/26/2019 9:09 AM CDT): Flu vaccine given today. Discussed possible tenderness/redness at injection site. Colon cancer screening 01/25/2019 Assessment & Plan (01/26/2019 9:09 AM CDT): Refuses colonoscopy; aware that it is gold standard for CRC screening. Agreeable to cologuard. Aware that cologuard kit will be mailed with directions. To call if no results rec'd 1-2 weeks after kit mailed back for completion of test. BMI 20.0-20.9, adult 01/25/2019 Assessment & Plan (01/26/2019 9:09 AM CDT): Discussed healthy diet and importance of regular physical activity. BMI is acceptable for this patient. Encounter for Medicare annual wellness exam 12/28 Breast cancer screening 01/25/2019 Assessment & Plan (01/26/2019 9:10 AM CDT): Mammogram order given; will call with results when received. Encouraged to perform monthly SBE. Will have done at [facility] in [place]. Encounter for screening for lipoid disorders Assessment & Plan (01/26/2019 9:10 AM CDT): Lipid panel ordered; will call w/results when received. Reviewed diet/exercise recommendations. Tobacco dependence due to cigarettes 12/05/2017 Acute low back pain 10/13/2015 Overview (07/01/2016): Acute midline low back pain without sciatica Hearing loss 08/11/2013 Overview (07/02/2016): HEARING LOSS NOS Loss of appetite 08/11/2013 Overview (07/02/2016): Anorexia Subjective tinnitus 02/14/2013 Overview (07/02/2016): Subjective tinnitus Mixed conductive and sensori neural hearing loss of both ears 02/14/2013 Overview (07/02/2016): Mixed hearing loss, bilateral Otosclerosis 02/14/2013 Overview (07/02/2016): Otosclerosis Immunizations Immunization Administration Dates Next Due Influenza, Quadrivalent, Spl it, Preservative Free, Intramuscular 01/25/2019,12/05/2017,01/23/2016 Influenza, Split 07/11/2013 Influenza, Unspecified 12/24/2020,01/03/2017 Surgical History Surgery Date Site/Laterality Comments COLONOSCOPY 04/19/2019 1st TONSILLECTOMY at age 13 TUBAL LIGATION 03/28/1990 - 03/27/1991 WISDOM TOOTH EXTRACTION 03/28/1987 - 03/27/1988 Medical History Medical History Date Comments Hypertension Family History Medical History Relation Name Comments Hearing loss Father Hearing disorde r; Coronary artery disease Mother Jess nary artery disease; COPD Sister 1 Breast cancer Sister 2 Cancer, breast ; Hearing loss Sister 3 Hearing disorde r; Relation Name Status Comments Father Mother Alive Sister 1 Alive Sister 2 Sister 3 Social History Tobacco Use Types Packs/Day Years Used Date Smoking Tobacco: Former Cigarettes 0.2 44.7 0 03/28/1978 - 12/08/2022 Smokeless Tobacco: Never Tobacco Cessation:Counseling Given: Not Answered Comments:Smoking History Packs/day: 0.5 Packs Alcohol Use Standard Drinks/Week Comments Yes 0 (1 standard drink = 0.6 oz pur e alcohol) rarely PHQ-2 Answer Date Recorded PHQ-2 Score 0 01/25/2019 Comments Unknown Sex and Gender Information Value Date Recorded Sex Assigned at Not on file 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 Gender Identity Not on file Sexual Orientation Not on file Obstetrics History Last Filed Vital Signs Vital Sign Reading Time Taken Comments Blood Pressure 138/82 07/08/2023 9:46 AM CDT Pulse 72 07/08/2023 9:46 AM CDT Temperature 37 C (98.6 F) 04/19/2019 9:00 AM IRON GUARDRAIL INSTALLER Respiratory Rate 20 04/19/2019 9:00 AM IRON GUARDRAIL INSTALLER Oxygen Saturation 94% 07/08/2023 9:46 AM CDT Inhaled Oxygen Concentration - - Weight 49.1 kg (108 lb 3.2 oz) 07/08/2023 9:46 A M CDT Height 157.5 cm (5' 2 ) 07/08/2023 9:46 AM CDT Body Mass Index 19.79 07/08/2023 9:46 AM CDT Plan of Treatment Health Maintenance Due Date Last Done Comments Cervical Cancer Screening 1965 Hepatitis C Screening 1965 DTaP/Tdap/Td Vaccine (1 - Tdap) 1974 Hepatitis B Screening 1981 Zoster Vaccine (1 of 2) 2013 Breast Cancer Screening-Mammogram 11/30/2018 11/30/2017 Depression Screening 01/26/2020 01/25/2019, 12/05/2017, 10/22/2016 Regular Well Visit/Exam 18-64 01/26/2020 01/25/2019 Colon Cancer Screening-DNA Stool 04/19/2022 04/19/2019, 04/19/2019, 03/06/2019 Covid-19 Vaccine ( season) 2023 02/18/2021, 08/05/2020, 07/08/2020 Influenza Vaccine (#1) 2023 , 01/25/2019, 12/05/2017, Additional history exists Pneumococcal vaccine <65 Aged Out No longer eligible based on patient's age to complete this topic Procedures Procedure Name Priority Date/Time Associated Diagnosis Comments COLONOSCOPY 04/19/2019 8:01 AM IRON GUARDRAIL INSTALLER SCREENING MAMMOGRAM Schedule Routine, Read Routine (OP Routine) 11/30/2017 from Last 3 Months or Most Recently Relevant to Health Maintenance Results * COLONOSCOPY (04/19/2019 8:01 AM IRON GUARDRAIL INSTALLER) Anatomical Region Laterality Modality Other Narrative Procedure Note Saleem Carmona MD - 04/19/2019 8:01 AM CST [facility] Patient Name: Raiza Joe Procedure Date: 04/19/2019 8:01 AM Date of : 1965 Admit Type: Outpatient Age: 54 Gender: Female Attending MD: Saleem Carmona M.D. Room: [facility] ENDOSCOPY ROOM 2 Note Status: Finalized Patient Profile: Refer to note in patient chart for documentation of history and physical. Procedure: Colonoscopy Indications: This is the patient's first colonoscopy, Positive Cologuard test Referring MD: Eladio Tay M.D. Providers: Saleem Carmona M.D. Impression: - Hemorrhoids found on perianal exam. - Two 4 to 5 mm polyps in the ascending colon,removed with a hot biopsy forceps. Resected and retrieved. - Diverticulosis in the sigmoid colon. - The examination was otherwise normal. Recommendation: - Discharge patient to home. - Resume previous diet. - Continue present medications. - Await pathology results. - Repeat colonoscopy in 5 years for surveillance. - Return to primary care physician as previously scheduled. Medicines: Propofol per Anesthesia Complications: No immediate complications. Estimated Blood Loss: Estimated blood loss: none. Procedure: Pre-Anesthesia Assessment: - This assessment was completed [Time of Assessment] prior to the administration of sedation. The benefits, risks and alternatives of theprocedure and sedation were discussed and informed consent was obtained. All questions were answered. Please referto the signed informed consent document in the medical record. The scope was passed under direct vision.The Colonoscope [id number] was introducedthrough the anus and advanced to the the cecum, identifiedby appendiceal orifice and ileocecal valve. The bowel preparation used was Miralax. The bowel preparation used was bisacodyl tablets. Bowel prep wasadministered using a split dose. The colonoscopy was performed without difficulty. The patient tolerated theprocedure well. The quality of the bowel preparation was excellent. Findings: Hemorrhoids were found on perianal exam. Two sessile polyps were found in the ascending colon. The polyps were4 to 5 mm in size. These polyps were removed with a hot biopsy forceps. Resection and retrieval were complete. Verification of patient identification for the specimen was done by the physician and nurse using the patient's name and date. Estimated blood loss was minimal. Multiple small and large-mouthed diverticula were found in thesigmoid colon. The exam was otherwise without abnormality. Electronically signed by Saleem Carmona M.D. Saleem Carmona M.D. 04/19/2019 8:25:03 AM Number of Addenda: 0 Note Initiated On: 04/19/2019 8:01 AM Procedure Code(s): --- Professional --- 94130, Colonoscopy, flexible; with removal of tumor(s), polyp(s), or other lesion(s) by hot biopsy forceps Diagnosis Code(s): --- Professional --- K57.30, Diverticulosis of large intestine without perforation orabscess without bleeding R19.5, Other fecal abnormalities D12.2, Benign neoplasm of ascending colon K64.9, Unspecified hemorrhoids CPT copyright 2017 [employer]. All rights reserved. The codes documented in this report are preliminary and upon pen tender reviewmay be revised to meet current compliance requirements. Recognized by the [employer] for promoting quality in endoscopy Saleem Carmona MD ENDOSCOPY PROCEDURES Final Re sult * Screening Mammogram (11/30/2017) Anatomical Region Laterality Modality Breast N/A Mammography Historical Provider IMG MAMMO PROCEDURES Veronica l Result from Last 3 Months or Most Recently Relevant to Health Maintenance Insurance [employer]ERCIAL GENERIC Member Subscriber Plan / Payer (Ef fective 2022-Present) Name:Raiza Joe Relation to Subscriber:Self Name:Raiza Joe Payer ID:[id number] Group ID:[id number] Type:COMMERCIAL Address: [address] [address] Advance Directives For more information, please contact: [phone] * Full Code (Latest Code Status on File) Date Activated Date Inactivated Comments 04/19/2019 7:20 AM 04/19/2019 1:44 PM * Full Code Date Activated Date Inactivated Comments 04/19/2019 7:20 AM 04/19/2019 7:20 AM Care Teams Traveling Crane Operator Relationship Specialty Start Date End Date Nato Fitzgerald DO [address] [place] [address] PCP - General Family Medicine 07/08/23
--- OUTSIDE RECORDS SUMMARY | 2024-05-21 07:07 | XMS_ITS | Referral Summary ---
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 3. Have an active lifestyle, strive for [...] perform monthly SBE. Will have done at [facility] in [place]. Encounter for screening for lipoid disorders Assessment [...] 01/25/2019,12/05/2017,01/23/2016 Influenza, Split 07/11/2013 Influenza, Unspecified 12/24/2020,01/03/2017 Social History Tobacco Use Types Packs/Day Years [...] on file Legal Sex Female 12:14 AM CONTROL AND RECOVERY COMBAT RESCUE Gender Identity Not on file Sexual Orientation Not on file Last Filed Vital Signs Vital Sign Reading Time Taken Comments Blood Pressure 138/82 07/08/2023 9:46 AM CDT Pulse 72 07/08/2023 9:46 AM CDT Temperature 37 C (98.6 F) 04/19/2019 9:00 AM CONTROL AND RECOVERY COMBAT RESCUE Respiratory Rate 20 04/19/2019 9:00 AM CONTROL AND RECOVERY COMBAT RESCUE Oxygen Saturation 94% 07/08/2023 9:46 AM CDT Inhaled Oxygen Concentration - - Weight 49.1 kg (108 lb 3.2 oz) 07/08/2023 9:46 A M CDT Height 157.5 cm (5' 2 ) 07/08/2023 9:46 AM CDT Body Mass Index 19.79 07/08/2023 9:46 AM CDT Plan of Treatment Not on file Procedures Procedure Name Priority Date/Time Associated Diagnosis Comments COLONOSCOPY 04/19/2019 8:01 AM CONTROL AND RECOVERY COMBAT RESCUE SCREENING MAMMOGRAM Schedule Routine, Read Routine (OP Routine) 11/30/2017 from Last 3 Months or Most Recently Relevant to Health Maintenance Results * COLONOSCOPY (04/19/2019 8:01 AM CONTROL AND RECOVERY COMBAT RESCUE) Anatomical Region Laterality Modality Other Narrative Procedure Note Saleem Carmona MD - 04/19/2019 8:01 AM CST [facility] Patient Name: Raiza Joe Procedure Date: 04/19/2019 8:01 AM Date of : 1965 Admit Type: Outpatient Age: 54 Gender: Female Attending MD: Saleem Carmona M.D. Room: [facility] ENDOSCOPY ROOM 2 Note Status: Finalized Patient [...] scope was passed under direct vision.The Colonoscope [id number] was introducedthrough the anus and advanced to [...] 8:01 AM Procedure Code(s): --- Professional --- 27574, Colonoscopy, flexible; with removal of tumor(s), polyp(s), or other lesion(s) by hot biopsy forceps Diagnosis Code(s): --- Professional --- K57.30, Diverticulosis of large intestine without perforation orabscess without bleeding R19.5, Other fecal abnormalities D12.2, Benign neoplasm of ascending colon K64.9, Unspecified hemorrhoids CPT copyright 2017 [employer]. All rights reserved. The codes documented in this report are preliminary and upon hims coder reviewmay be revised to meet current compliance requirements. Recognized by the [employer] for promoting quality in endoscopy Saleem Carmona MD ENDOSCOPY PROCEDURES Final Re sult * Screening Mammogram (11/30/2017) Anatomical Region Laterality Modality Breast N/A Mammography Historical Provider MD [facility] MAMMO PROCEDURES Veronica l Result from Last 3 Months or Most Recently Relevant to Health Maintenance Insurance [employer] GENERIC Member Subscriber Plan / Payer (Ef fective 2022-Present) Name:Tatyana Raiza Solomon Relation to Subscriber:Self Name:Joe Raiza Solomon Payer ID:[id number] Group ID:[id number] Type:COMMERCIAL Address: [address] [address] Advance Directives For more information, please contact: [phone] * Full Code (Latest Code Status on File) Date Activated Date Inactivated Comments 04/19/2019 7:20 AM 04/19/2019 1:44 PM * Full Code Date Activated Date Inactivated Comments 04/19/2019 7:20 AM 04/19/2019 7:20 AM Care Teams Java Lead Developer Relationship Specialty Start Date End Date Nato Fitzgerald DO [address] [place] [address] PCP - General Family Medicine 07/08/23
--- OUTSIDE RECORDS SUMMARY | 2024-05-21 07:07 | XMS_ITS | Clinical Summary ---
Author Organization [facility] Address [facility] [place] [address] Care Team Providers Care Sharepoint Administrator Name Role Phone Eladio Tay MD Primary Care Provider [phone] Social History Tobacco Use Types Packs/Day Years Used Date Smoking Tobacco: Never Assessed Comments Unknown Sex and Gender Information Value Date Recorded Sex Assigned at Not on file Legal Sex Female 5:59 PM APPLICATIONS PROCESSOR Gender Identity Not on file Sexual Orientation Not on file Plan of Treatment Health Maintenance Due Date Last Done Comments Cervical Cancer Screening Pap Smear (Age 30 to 64) Every 3 Years 1965 Colorectal Cancer Screening Colonoscopy (10 Years) 1965 Annual Physical 1966 Hepatitis C 1981 DTaP, Tdap and Td Vaccines (1 - Tdap) 1982 Cervical Cancer Screening Pap with HPV Testing (Age 30 to 64) Every 5 Years 1993 Cervical Cancer Screening with HPV 1993 Mammogram Screening 2003 Zoster Vaccines (1 of 2) 2013 COVID-19 Vaccine ( season) 2023 Influenza Adult (#1) 2023 12/05/2017, 01/03/2017, 01/23/2016, Additional history exists RSV Immunization or 60+ Years (1 - 1-dose 75+ series) 2038 Meningococcal B Vaccine Aged Out No l onger eligible based on patient's age to complete this topic Meningococcal Vaccine Aged Out No karen maria a eligible based on patient's age to complete this topic Pneumococcal Vaccine: Pediatrics (0 to 5 Years) and At-Risk Patients (6 to 64 Years) Aged Out No longer eligible based on patient's age to complete this topic RSV Immunizations Under 20 Months Aged Out No longer eligible based on patient's age to complete this topic Insurance [facility] Care Teams Sharepoint Administrator Relationship Specialty Start Date End Date Eladio Tay MD [address] [place] [address] PCP - General INTERNAL MEDICINE 01/17/19
[2024-05-21 07:27] LABS: Hematocrit 41.3 % (35.0-49.0); Hemoglobin 13.6 g/dL (12.0-15.0); Mean Corpuscular HGB Conc 32.9 g/dL (32-36); Mean Corpuscular Hemoglobin 32.4 pg (27.0-31.0); Mean Corpuscular Volume 98.3 fL (78.0-102.0); Platelet Count Result 286 K/mm3 (150-420); Red Cell Distribution Width 12.8 % (11.6-14.4); White Blood Count 12.5 K/mm3 (4.8-10.8)
[2024-05-21 08:08] LABS: Band Neutrophils Percent 0 % (0-6); Eosinophils Absolute Manual 0.37 K/mm3 (0.02-0.50); Eosinophils Percent Manual 3 % (1-6); Lymphocytes Absolute Manual 5.75 K/mm3 (1.1-4.5); Lymphocytes Percent Manual 46 % (18-44); Monocytes Absolute Manual 1.12 K/mm3 (0.1-0.90); Monocytes Percent Manual 9 % (3-9); Neutrophils Absolute Manual 5.25 K/mm3 (1.7-7.2); Neutrophils Percent Manual 42 % (46-73); Platelet Estimate Adequate (Adequate); Total Cells Counted 100
[2024-05-21 08:31] LABS: Alanine Aminotransferase 24 U/L (14-59); Alkaline Phosphatase 109 U/L (46-116); Anion Gap 9 mmol/L (4-12); Aspartate Amino Transferase 16 U/L (15-37); Bilirubin,Total 0.9 mg/dL (0.00-1.00); Blood Urea Nitrogen 15 mg/dL (7-18); Calcium 8.7 mg/dL (8.5-10.1); Carbon Dioxide 30 mmol/L (21-32); Chloride 103 mmol/L (98-108); Cholesterol 128 mg/dL (0-200); Estimated Glomerular Filt Rate > 60; Folic Acid 5.2 ng/mL (8.6->20); Glucose 99 mg/dL (70-99); HDL Direct 64 mg/dL (40-60); LDL Cholesterol Calculated 43 mg/dL (<130); Magnesium 1.7 mg/dL (1.8-2.4); Osmolality Calculated 294 mOsm/kg (285-295); Sodium 142 mmol/L (136-145); Total Protein 6.8 g/dL (6.4-8.2); Triglycerides 106 mg/dL (0-150); Vitamin B12 473 pg/mL (193-986)
[2024-05-21 08:38] LABS: Free T4 Free Thyroxine Reflex 0.84 ng/dL (0.76-1.46)
== END 2024-05-21 07:05 | disposition home or self-care (01) ==
LOC: CHSLAB 07:05
PROVIDERS: PCP Family Medicine; Visit Provider Family Medicine
DX: E53.8 Deficiency of other specified B group vitamins (principal); I10 Essential (primary) hypertension; E03.9 Hypothyroidism, unspecified
CPT/HCPCS: 36415; 80053; 80061; 82607; 82746; 83735; 84439; 84443; 85025

== ENCOUNTER 2024-06-11 08:46 | Outpatient (RCR) | payer OTHER, SELFPAY | END 2024-09-09 23:59 | disposition home or self-care (01) | LOC: CHSAUDIO 08:46 | PROVIDERS: PCP Family Medicine; Visit Provider Family Medicine | DX: Z46.1 Encounter for fitting and adjustment of hearing aid (principal) | CPT/HCPCS: 99199 ==

== ENCOUNTER 2024-07-27 13:46 | Emergency (ER) | payer OTHER, SELFPAY ==
[2024-07-27] VITALS (18 sets, daily range): BP systolic 136–178; BP diastolic 68–90; PULSE 69–97; RESP 11–22; TEMP 37.1; O2SAT 91–98
--- NOTE | ~2024-07-27 | XR_ITS ---
EXAMINATION: XR chest 1V portable 07/27/2024 14:26 INDICATION: Shortness of breath. Chest pain PROCEDURE: 2 view chest COMPARISON: 12/21/2022 FINDINGS: The lungs are clear. The cardiomediastinal silhouette is within normal limits. There are no pleural effusions. There is no pneumothorax suspected. The lungs are hyperinflated which is cons istent with, but not diagnostic of chronic obstructive pulmonary disease. IMPRESSION: 1: NO ACUTE CARDIOPULMONARY DISEASE. Reviewed, dictated and finalized at location A.
--- NOTE | 2024-07-27 13:56 | ED_ITS ---
HPI - SOB/Dyspnea General Chief Complaint: Shortness of Breath/Dyspnea Stated Complaint: shortness of breath/ chest pain Time Seen by Provider: 07/27/24 13:55 Source: patient Mode of arrival: ambulatory Limitations: no limitations History of Present Illness HPI Narrative: Patient is a 59-year-old female with COPD and tobacco abuse here with shortness of breath and some mild chest pain. Patient has breathing related chest pain. She gets flares of her COPD at times and she said this feels similar to prior episodes. She was told by the primary doctor to come to the ER for evaluation. Prior MS without intervention a year ago. she has been cleaning a house recent that was very dirty according to the patient. MD elicited complaint: shortness of breath, cough, pain with inspiration and chest pain Pertinent past history: COPD Onset (ago): day(s) ( Three) Context: allergen exposure and smoke/fume exposure Timing: constant Severity: moderate Exacerbating factors: exertion, coughing and smoke Relieving factors: rest Known history of: COPD Associated symptoms: chest pain, pain with inspiration, cough and chest congestion Treatment prior to arrival: bronchodilator Related Data Home oxygen amount: none Home Medications ?Medication ?Instructions ?Recorded ?Confirmed ?Last Taken ?Type magnesium glycinate 200 mg PO DAILY 05/25/24 06/08/24 Unknown History Allergies Allergy/AdvReac Type Severity Reaction Status Date / Time No Known Allergies Allergy Verified 06/08/24 10:23 Review of Systems 2 Review of Systems: All systems reviewed & are unremarkable except as noted in HPI and below Constitutional: Constitutional: Reports no additional constitutional complaints Eyes: Eyes: Reports no additional eye complaints ENT: Reports system reviewed and no additional complaints, except as documented Cardiovascular: Cardiovascular: Reports no additional cardiovascular complaints Respiratory: Respiratory: Reports no additional respiratory complaints Gastrointestinal: Gastrointestinal: Reports no additional gastrointestinal complaints Genitourinary: Genitourinary: Reports no additional female genitourinary complaints Musculoskeletal: Musculoskeletal: Reports no additional musculoskeletal complaints Integumentary/Breasts: Skin/Breast: Reports system reviewed and no additional complaints, except as docu Neurologic: Reports system reviewed and no additional complaints, except as documented Psychiatric: Psychiatric: Reports no additional psychiatric complaints Endocrine: Endocrine: Reports no additional endocrine complaints Hematologic/Lymphatic: Hematologic/Lymphatic: Reports no additional hematologic/lymphatic complaints Allergic/Immunologic: Allergic/Immunologic: Reports no additional allergic/immunologic complaints [facility] Past Medical History Medical History Chronic obstructive pulmonary disease Dyslipidemia Hypertension Surgical History Surgical History History of tonsillectomy History of tubal ligation Social History Social History Social History: Code status: Full code. Smoking packs per day: 10 Smoking cigarettes per day: 200.0 Years smoked: 45 Smoking pack-years: 450.00 Smoking status: Current some day smoker Tobacco type: cigarettes Second hand tobacco smoke exposure: No Smoking end date: 12/09/22 Alcohol intake: never Substance use: former Substance use type: marijuana Lack of Transportation: No Lack of Food: Never True Current Housing: I Have Housing Concerned About Future Housing: No Difficulty Paying Gas/Electric Bills: No Difficulty Paying for Meds: No Currently Unemployed: No Education: High School Diploma/GED Difficulty w/ Childcare or Family Care: No Spiritual care concerns: No Exam 2 Const: General: healthy appearing Nutritional Appearance: well nourished Orientation/consciousness: patient oriented x3 HENMT: Head: normal to inspection Ears: external ears normal F zaire/Nose/Sinus: Normal external nose present Eyes: Conjunctivae: conjunctivae normal Pupils: Equal, round and reactive pupils present EOM: EOMs intact bilaterally Neck: Neck: normal visual inspection Chest: Chest palpation & inspection: normal inspection of the chest Resp: Effort & Inspection: normal respiratory effort, not labored, no retractions, tachypneic and no use of accessory muscles Auscultation: clear to auscultation bilaterally, no crackles, no rales, no rhonchi, no wheezes, breath sounds present and diminished lung sounds bilateral and diffuse Cardio: Rate: regular rate Rhythm: regular rhythm Heart sounds: no murmurs GI: Inspection: non-distended GI Palp: Yes Soft to palpation and No Tenderness to palpation present (GI) Auscultation: normal bowel sounds : General: Yes bladder normal to palpation Back/Spine/Pelvis: Back: no CVA tenderness Skin: General skin exam: normal color Rashes: no rashes Wounds: no wounds Neuro: General: patient oriented x3 Cranial nerves: Yes Nystagmus not present Speech: normal speech Extrem: General: normal to inspection Psych: Mental Status: mental status grossly normal Affect: normal affect Attitude: cooperative Course Vital Signs Vital signs: Vital Signs Temperature 37.1 C 07/27/24 13:46 Pulse Rate 92 07/27/24 13:46 Respiratory Rate 22 H 07/27/24 13:46 Blood Pressure 178/90 H 07/27/24 13:46 Pulse Oximetry 92 07/27/24 13:46 Oxygen Delivery Room Air 07/27/24 13:46 Temperature 37.1 C 07/27/24 13:46 Pulse Rate 82 07/27/24 15:44 Respiratory Rate 16 07/27/24 15:44 Blood Pressure 151/76 H 07/27/24 15:01 Pulse Oximetry 98 07/27/24 15:44 Oxygen Delivery Room Air 07/27/24 15:15 MDM - SOB/Dyspnea MDM Narrative Medical decision making narrative: Patient is a 59-year-old female with COPD and having some shortness of breath and mild chest pain. We will do a cardiopulmonary workup at this time. We will give her DuoNeb and Solu-Medrol. Lab Data Attestation: I reviewed the patient's lab results. 07/27/24 14:06 07/27/24 14:06 Labs: Lab Results 07/27/24 07/27/24 Range/Units 14:05 14:06 WBC 9.1 (4.8-10.8) K/mm3 RBC 4.01 L (4.20-5.40) M/mm3 Hgb 13.5 (12.0-15.0) g/dL Hct 40.0 (35.0-49.0) % MCV 99.8 (78.0-102.0) fL MCH 33.7 H (27.0-31.0) pg MCHC 33.8 (32-36) g/dL RDW 14.8 H (11.6-14.4) % Plt Count 221 (150-420) K/mm3 MPV 9.2 (9.2-11.8) fl Immature Gran % (Auto) 0.4 H (0.0-0.0) % Neut % (Auto) 65.4 (50.0-70.0) % Lymph % (Auto) 21.9 (18.0-42.0) % [place] % (Auto) 11.8 H (2.0-11.0) % Eos % (Auto) 0.2 L (1.0-6.0) % Baso % (Auto) 0.3 (0.0-1.0) % Lymph # (Auto) 1.98 (1.10-4.50) K/mm3 [place] # (Auto) 1.07 H (0.10-0.90) K/mm3 Eos # (Auto) 0.02 (0.02-0.50) K/mm3 Baso # (Auto) 0.03 (0.00-0.10) K/mm3 Abs Immat Gran (auto) 0.04 H (0.00-0.00) K/mm3 Absolute Neuts (auto) 5.91 (1.70-7.20) K/mm3 Absolute Nucleated RBC 0.00 (0.00-0.00) K/mm3 Nucleated RBC % 0.0 (0-0.0) % PT 11.1 (9.50-12.1) Seconds INR 1.0 APTT 27.7 (23.9-30.70) Sec D-Dimer 0.24 (0.19-0.50) mg/L Sodium 136 (136-145) mmol/L Potassium 3.6 (3.5-5.1) mmol/L Chloride 97 L (98-108) mmol/L Carbon Dioxide 26 (21-32) mmol/L Anion Gap 13 H (4-12) mmol/L BUN 17 (7-18) mg/dL Creatinine 1.00 (0.55-1.02) mg/dL Estim Creat Clear Calc 39 ml/min Estimated GFR 56 L (59 - ) Glucose 109 H (70-99) mg/dL Calculated Osmolality 284 L (285-295) mOsm/kg Calcium 9.2 (8.5-10.1) mg/dL Total Bilirubin 1.0 (0.00-1.00) mg/dL AST 35 (15-37) U/L ALT 29 (14-59) U/L Alkaline Phosphatase 97 (46-116) U/L Troponin I 9.8 (0.00-60.4) ng/L NT-Pro-B Natriuret Pep 433 H (0-125) pg/mL Total Protein 7.8 (6.4-8.2) g/dL Albumin 4.2 (3.4-5.0) g/dL Influenza A (RT-PCR) Negative (Negative) Influenza B (RT-PCR) Negative (Negative) RSV (RT-PCR) Negative (Negative) SARS-CoV-2 RNA (RT-PCR) Negative (Negative) Imaging Data Attestation: I personally reviewed and interpreted this imaging study as follows: Radiologist's impression: chest x-ray was negative for acute process ECG Data EKG #1: Attestation: I personally reviewed and interpreted this ECG as follows: ECG completion date: 07/27/24 ECG completion time: 14:03 EKG Interpretation: normal rate, sinus rhythm, no ectopy, non-specific ST changes, normal QRS, normal QT and NL axis Discharge Plan Discharge Clinical Impression: Acute exacerbation of chronic obstructive pulmonary disease Patient Disposition: Home Condition: Stable Instructions: Antibiotic Form, COPD (Chronic Obstructive Pulmonary Disease) (ED) Patient Language: Yoruba Prescriptions: New levofloxacin 500 mg tablet 500 mg PO DAILY 5 Days Qty: 5 0RF prednisone 20 mg tablet 40 mg PO DAILY 3 Days Qty: 6 0RF No Action magnesium glycinate 100 mg magnesium capsule 200 mg PO DAILY valacyclovir 500 mg tablet 500 mg PO DAILY Qty: 90 0RF escitalopram oxalate 20 mg tablet See Rx Instructions .ROUTE .COMPLEX Qty: 90 3RF Dose Instruction: TAKE 1 TABLET BY MOUTH EVERY DAY Rx Instructions: TAKE 1 TABLET BY MOUTH EVERY DAY fluticasone propion-salmeterol [Advair Diskus] 100-50 mcg/dose blister with device 1 inh inhalation Q12H Qty: 60 5RF Rx Instructions: rinse and spit after aspirin 81 mg tablet,delayed release (DR/EC) See Rx Instructions .ROUTE .COMPLEX Qty: 90 3RF Dose Instruction: TAKE 1 TABLET BY MOUTH AT BEDTIME Rx Instructions: TAKE 1 TABLET BY MOUTH AT BEDTIME albuterol sulfate 90 mcg/actuation HFA aerosol inhaler See Rx Instructions .ROUTE .COMPLEX Qty: 25.5 0RF Dose Instruction: NEEDED FOR SHORTNESS OF BREATH OR WHEEZING INHALE 1 PUFF EVERY 4 HOURS Rx Instructions: NEEDED FOR SHORTNESS OF BREATH OR WHEEZING INHALE 1 PUFF EVERY 4 HOURS atorvastatin 40 mg tablet See Rx Instructions .ROUTE .COMPLEX Qty: 180 2RF Dose Instruction: TAKE 2 TABLETS BY MOUTH AT BEDTIME Rx Instructions: TAKE 2 TABLETS BY MOUTH AT BEDTIME Follow-up/Referrals: Nato Fitzgerald DO [Primary Care Provider] - Time of Disposition: 15:46
--- NOTE | 2024-07-27 13:56 | ECG_ITS ---
Test Date: 2024-07-27 14:11:18 Measurements Intervals [place] Rate: 77 P: 85 MA: 147 QRS: 78 QRSD: 80 T: 79 QT: 400 QTc: 454 Interpretive Statements SINUS RHYTHM SEPTAL MYOCARDIAL INFARCTION , OF INDETERMINATE AGE [40+ ms Q WAVE IN V1/V2] INTERPRETATION BASED ON A DEFAULT AGE OF 40 YEARS No previous ECG available for comparison Electronically Signed On 07-28-2024 11:46:53 CDT by Brody Hester M.D.
[2024-07-27] MEDS: methylPREDNISolone SOD SUCC 125 MG VIAL IV PUSH (14:07)
[2024-07-27 14:10] LABS: Basophils Absolute Auto 0.03 K/mm3 (0.00-0.10); Basophils Percent Auto 0.3 % (0.0-1.0); Eosinophils Absolute Auto 0.02 K/mm3 (0.02-0.50); Eosinophils Percent Auto 0.2 % (1.0-6.0); Hemoglobin 13.5 g/dL (12.0-15.0); Immature Granulocyte Absolute 0.04 K/mm3 (0.00-0.00); Immature Granulocyte Percent A 0.4 % (0.0-0.0); Lymphocytes Absolute Auto 1.98 K/mm3 (1.10-4.50); Lymphocytes Percent Auto 21.9 % (18.0-42.0); Mean Corpuscular HGB Conc 33.8 g/dL (32-36); Mean Corpuscular Hemoglobin 33.7 pg (27.0-31.0); Mean Corpuscular Volume 99.8 fL (78.0-102.0); Mean Platelet Volume 9.2 fl (9.2-11.8); Monocytes Absolute Auto 1.07 K/mm3 (0.10-0.90); Monocytes Percent Auto 11.8 % (2.0-11.0); Neutrophils Absolute Auto 5.91 K/mm3 (1.70-7.20); Neutrophils Percent Auto 65.4 % (50.0-70.0); Platelet Count Result 221 K/mm3 (150-420); Red Blood Count 4.01 M/mm3 (4.20-5.40); Red Cell Distribution Width 14.8 % (11.6-14.4); White Blood Count 9.1 K/mm3 (4.8-10.8)
[2024-07-27] MEDS: IPRATROPIUM 0.5 MG/ALBUTEROL SULFATE 2.5 MG AMPUL.NEB 3 ML INHALATION ×2 (14:18→15:37)
[2024-07-27 14:25] LABS: Partial Thromboplastin Time 27.7 Sec (23.9-30.70); Prothrombin Time 11.1 Seconds (9.50-12.1)
[2024-07-27 14:25] LABS: D Dimer 0.24 mg/L (0.19-0.50)
[2024-07-27 14:33] LABS: Alanine Aminotransferase 29 U/L (14-59); Albumin Level 4.2 g/dL (3.4-5.0); Alkaline Phosphatase 97 U/L (46-116); Anion Gap 13 mmol/L (4-12); Aspartate Amino Transferase 35 U/L (15-37); Blood Urea Nitrogen 17 mg/dL (7-18); Calcium 9.2 mg/dL (8.5-10.1); Carbon Dioxide 26 mmol/L (21-32); Chloride 97 mmol/L (98-108); Estimated CRCL calculation 39 ml/min; Estimated Glomerular Filt Rate 56; Glucose 109 mg/dL (70-99); NT Pro B Type Natriuretic Pept 433 pg/mL (0-125); Osmolality Calculated 284 mOsm/kg (285-295); Potassium 3.6 mmol/L (3.5-5.1); Sodium 136 mmol/L (136-145); Total Protein 7.8 g/dL (6.4-8.2)
[2024-07-27 14:33] LABS: Troponin I 9.8 ng/L (0.00-60.4)
[2024-07-27 14:47] LABS: Influenza A QL RT-PCR Negative (Negative); Influenza B QL RT-PCR Negative (Negative); RSV RNA, RT-PCR Negative (Negative); SARS-CoV-2 RNA PCR Negative (Negative)
--- OUTSIDE RECORDS SUMMARY | 2024-07-28 14:11 | XMS_ITS | Clinical Summary ---
Author Organization [facility] Address [address] [place] [id number] Care Team Providers Care Rehab Technician Name Role Phone Eladio Tay MD Primary Care Provider Social History Tobacco Use Types Packs/Day Years Used Date Smoking Tobacco: Never Assessed Comments Unknown Sex and Gender Information Value Date Recorded Sex Assigned at Not on file Legal Sex Female 5:59 PM AMMONIUM NITRATE CRYSTALLIZER Gender Identity Not on file Sexual Orientation Not on file Plan of Treatment Health Maintenance Due Date Last Done Comments Cervical Cancer Screening Pa p Smear (Age 30 to 64) Every 3 Years 1963 Colorectal Cancer Screening Colonoscopy (10 Years) 1963 Annual Physical 1966 Hepatitis C 1981 DTaP, Tdap and Td Vaccines ( 1 - Tdap) 1982 Cervical Cancer Screening Pa p with HPV Testing (Age 30 to 64) Every 5 Years 1993 Cervical Cancer Screening with HPV 1993 Mammogram Screening 2003 Pneumococcal Vaccine: 50+ Ye ars (1 of 1 - PCV) 2013 Zoster Vaccines (1 of 2) 2013 COVID-19 Vaccine ( - 2023-2 5 season) 2023 RSV Immunization or 60+ Years (1 - [...] patient's age to complete this topic Insurance [employer] Care Teams Rehab Technician Relationship Specialty Start Date End Date Eladio Tay MD [address] [place] [id number] PCP - General INTERNAL MEDICINE 01/17/19
--- OUTSIDE RECORDS SUMMARY | 2024-07-28 14:11 | XMS_ITS | Clinical Summary ---
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 3. Have an active lifestyle, strive for [...] perform monthly SBE. Will have done at [facility] in [place]. Encounter for screening for lipoid disorders Assessment [...] on file Legal Sex Female 12:14 AM TERRITORY REPRESENTATIVE Gender Identity Not on file Sexual Orientation Not on file Obstetrics History Last Filed Vital Signs Vital Sign Reading Time Taken Comments Blood Pressure 138/82 07/08/2023 9:46 AM CDT Pulse 72 07/08/2023 9:46 AM CDT Temperature 37 C (98.6 F) 04/19/2019 9:00 AM TERRITORY REPRESENTATIVE Respiratory Rate 20 04/19/2019 9:00 AM TERRITORY REPRESENTATIVE Oxygen Saturation 94% 07/08/2023 9:46 AM CDT [...] season) 2023 02/18/2021, 08/05/2020, 07/08/2020 Influenza Vaccine (Season Ended) 2024 12/24/2020, 01/25/2019, 12/05/2017, Additional history exists Pneumococcal vaccine <65 Aged Out No longer eligible based on patient's age to complete this topic Procedures Procedure Name Priority Date/Time Associated Diagnosis Comments COLONOSCOPY 04/19/2019 8:01 AM TERRITORY REPRESENTATIVE SCREENING MAMMOGRAM Schedule Routine, Read Routine (OP Routine) 11/30/2017 from Last 3 Months or Most Recently Relevant to Health Maintenance Results * COLONOSCOPY (04/19/2019 8:01 AM TERRITORY REPRESENTATIVE) Anatomical Region Laterality Modality Other Narrative Procedure Note Saleem Carmona MD - 04/19/2019 8:01 AM CST [facility] Patient Name: Raiza Joe Procedure Date: 04/19/2019 8:01 AM Date of : 1965 Admit Type: Outpatient Age: 54 Gender: Female Attending MD: Saleem Carmona M.D. Room: [facility] RO[facility] 2 Note Status: Finalized Patient [...] scope was passed under direct vision.The Colonoscope [id number] was introducedthrough the anus and advanced to [...] 8:01 AM Procedure Code(s): --- Professional --- 51930, Colonoscopy, flexible; with removal of tumor(s), polyp(s), or other lesion(s) by hot biopsy forceps Diagnosis Code(s): --- Professional --- K57.30, Diverticulosis of large intestine without perforation orabscess without bleeding R19.5, Other fecal abnormalities D12.2, Benign neoplasm of ascending colon K64.9, Unspecified hemorrhoids CPT copyright 2017 [employer]. All rights reserved. The codes documented in this report are preliminary and upon retail cosmetics sales beauty advisor reviewmay be revised to meet current compliance requirements. Recognized by the [employer] for promoting quality [...] Joe Payer ID:[id number] Group ID:[id number] Type:COMMERCIAL [facility] [id number] [place] [id number] Advance Directives For more information, please contact: [phone] * Full Code (Latest Code Status on File) Date Activated Date Inactivated Comments 04/19/2019 7:20 AM 04/19/2019 1:44 PM * Full Code Date Activated Date Inactivated Comments 04/19/2019 7:20 AM 04/19/2019 7:20 AM Care Teams Train Gate Attendant Relationship Specialty Start Date End Date Nato Fitzgerald DO [address] [place] [address] PCP - General Family Medicine 07/08/23
--- OUTSIDE RECORDS SUMMARY | 2024-07-28 14:11 | XMS_ITS | Referral Summary ---
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 3. Have an active lifestyle, strive for [...] perform monthly SBE. Will have done at [facility] in [place]. Encounter for screening for lipoid disorders Assessment [...] on file Legal Sex Female 12:14 AM DROP WIRE ALIGNER Gender Identity Not on file Sexual Orientation Not on file Last Filed Vital Signs Vital Sign Reading Time Taken Comments Blood Pressure 138/82 07/08/2023 9:46 AM CDT Pulse 72 07/08/2023 9:46 AM CDT Temperature 37 C (98.6 F) 04/19/2019 9:00 AM DROP WIRE ALIGNER Respiratory Rate 20 04/19/2019 9:00 AM DROP WIRE ALIGNER Oxygen Saturation 94% 07/08/2023 9:46 AM CDT Inhaled Oxygen Concentration - - Weight 49.1 kg (108 lb 3.2 oz) 07/08/2023 9:46 A M CDT Height 157.5 cm (5' 2 ) 07/08/2023 9:46 AM CDT Body Mass Index 19.79 07/08/2023 9:46 AM CDT Plan of Treatment Not on file Procedures Procedure Name Priority Date/Time Associated Diagnosis Comments COLONOSCOPY 04/19/2019 8:01 AM DROP WIRE ALIGNER SCREENING MAMMOGRAM Schedule Routine, Read Routine (OP Routine) 11/30/2017 from Last 3 Months or Most Recently Relevant to Health Maintenance Results * COLONOSCOPY (04/19/2019 8:01 AM DROP WIRE ALIGNER) Anatomical Region Laterality Modality Other Narrative Procedure Note Saleem Carmona MD - 04/19/2019 8:01 AM CST [facility] Patient Name: Raiza Joe Procedure Date: 04/19/2019 8:01 AM Date of : 1965 Admit Type: Outpatient Age: 54 Gender: Female Attending MD: Saleem Carmona M.D. Room: [facility] RO[facility] 2 Note Status: Finalized [...] scope was passed under direct vision.The Colonoscope [id number] was introducedthrough the anus and advanced to [...] 8:01 AM Procedure Code(s): --- Professional --- 59944, Colonoscopy, flexible; with removal of tumor(s), polyp(s), or other lesion(s) by hot biopsy forceps Diagnosis Code(s): --- Professional --- K57.30, Diverticulosis of large intestine without perforation orabscess without bleeding R19.5, Other fecal abnormalities D12.2, Benign neoplasm of ascending colon K64.9, Unspecified hemorrhoids CPT copyright 2017 [employer]. All rights reserved. The codes documented in this report are preliminary and upon manager market intelligence reviewmay be revised to meet current compliance requirements. Recognized by the [employer] for promoting quality [...] Joe Payer ID:[id number] Group ID:[id number] Type:COMMERCIAL Address: [facility] [id number] [place] [id number] Advance Directives For more information, please contact: [phone] * Full Code (Latest Code Status on File) Date Activated Date Inactivated Comments 04/19/2019 7:20 AM 04/19/2019 1:44 PM * Full Code Date Activated Date Inactivated Comments 04/19/2019 7:20 AM 04/19/2019 7:20 AM Care Teams Recorder Gravity Prospecting Relationship Specialty Start Date End Date Nato Fitzgerald DO [address] [place] [address] PCP - General Family Medicine 07/08/23
== END 2024-07-27 15:45 | disposition home or self-care (01) ==
PROVIDERS: Emergency Provider Emergency Medicine; PCP Family Medicine
DX: J44.1 Chronic obstructive pulmonary disease with (acute) exacerbation (principal); J44.9 Chronic obstructive pulmonary disease, unspecified; I10 Essential (primary) hypertension; F17.210 Nicotine dependence, cigarettes, uncomplicated; Z20.822 Contact with and (suspected) exposure to COVID-19
CPT/HCPCS: 36415; 71045; 80053; 83880; 84484; 85025; 85380; 85610; 85730; 87637; 93005; 94640; 96374; 99284; J2919

== ENCOUNTER 2025-01-11 11:40 | Outpatient (CLI) | payer OTHER, SELFPAY ==
--- NOTE | ~2025-01-11 | CT_ITS ---
EXAMINATION:CT lung screening DATE: 01/11/2025 11:56 INDICATION: Personal history of nicotine dependence. TECHNIQUE: Computed tomography (CT) of the chest was performed without intravenous contrast. Automated exposure control and iterative reconstruction technique were employed. The dose-length product (DLP) was 71.24 mGy-cm. COMPARISON: Chest CT 12/26/23 FINDINGS: There is mild scarring at the lung apices. There is severe emphysema. Calcified left lung nodules and calcified left hilar lymph nodes are consistent with old granulomatous disease. No pleural effusion. The heart size is normal. No pericardial effusion. There is mild thoracic spondylosis. IMPRESSION: 1. Lung-RADS category 2: Benign appearance or behavior. Continue annual screening with noncontrast low-dose chest CT in 12 months. Reviewed, dictated and finalized at location E. IMPRESSION: 1. Lung-RADS category 2: Benign appearance or behavior. Continue annual screeni ng with noncontrast low-dose chest CT in 12 months.
--- OUTSIDE RECORDS SUMMARY | 2025-01-11 12:26 | XMS_ITS | Clinical Summary ---
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 3. Have an active lifestyle, strive for [...] perform monthly SBE. Will have done at [facility] in [place]. Encounter for screening for lipoid disorders Assessment [...] on file Legal Sex Female 12:14 AM MANAGER POOL Gender Identity Not on file Sexual Orientation Not on file Obstetrics History Last Filed Vital Signs Vital Sign Reading Time Taken Comments Blood Pressure 138/82 07/08/2023 9:46 AM CDT Pulse 72 07/08/2023 9:46 AM CDT Temperature 37 C (98.6 F) 04/19/2019 9:00 AM MANAGER POOL Respiratory Rate 20 04/19/2019 9:00 AM MANAGER POOL Oxygen Saturation 94% 07/08/2023 9:46 AM CDT Inhaled Oxygen Concentration - - Weight 49.1 kg (108 lb 3.2 oz) 07/08/2023 9:46 A M CDT Height 157.5 cm (5' 2) 07/08/2023 9:46 AM CDT Body Mass Index [...] 04/19/2019, 04/19/2019, 03/06/2019 Covid-19 Vaccine ( season) 2024 02/18/2021, 08/05/2020, 07/08/2020 Influenza Vaccine (#1) 2024 , 01/25/2019, 12/05/2017, Additional history exists Pneumococcal vaccine <65 Aged Out No longer eligible based on patient's age to complete this topic Procedures Procedure Name Priority Date/Time Associated Diagnosis Comments COLONOSCOPY 04/19/2019 8:01 AM MANAGER POOL SCREENING MAMMOGRAM Schedule Routine, Read Routine (OP Routine) 11/30/2017 from Last 3 Months or Most Recently Relevant to Health Maintenance Results * COLONOSCOPY (04/19/2019 8:01 AM MANAGER POOL) Anatomical Region Laterality Modality Other Narrative Procedure Note Saleem Carmona MD - 04/19/2019 8:[address] C[address] [facility] Patient Name: Raiza Joe Procedure Date: 04/19/2019 8:01 AM Date of : 1965 Admit Type: Outpatient Age: 54 Gender: Female Attending MD: Saleem Carmona M.D. Room: [facility] ROOM 2 Note Status: Finalized Patient [...] scope was passed under direct vision.The Colonoscope [id number] was introducedthrough the anus and advanced to [...] 8:01 AM Procedure Code(s): --- Professional --- 67248, Colonoscopy, flexible; with removal of tumor(s), polyp(s), or other lesion(s) by hot biopsy forceps Diagnosis Code(s): --- Professional --- K57.30, Diverticulosis of large intestine without perforation orabscess without bleeding R19.5, Other fecal abnormalities D12.2, Benign neoplasm of ascending colon K64.9, Unspecified hemorrhoids CPT copyright 2017 [employer]. All rights reserved. The codes documented in this report are preliminary and upon button inspector reviewmay be revised to meet current compliance requirements. Recognized by the [employer] for promoting quality [...] Joe Payer ID:[id number] Group ID:[id number] Type:COMMERCIAL [facility] [id number] [place] [id number] Advance Directives For more information, please contact: [phone] * Full Code (Latest Code Status on File) Date Activated Date Inactivated Comments 04/19/2019 7:20 AM 04/19/2019 1:44 PM * Full Code Date Activated Date Inactivated Comments 04/19/2019 7:20 AM 04/19/2019 7:20 AM Care Teams Product Manager E Commerce Relationship Specialty Start Date End Date Nato Fitzgerald DO [address] [place] [address] PCP - General Family Medicine 07/08/23
--- OUTSIDE RECORDS SUMMARY | 2025-01-11 12:26 | XMS_ITS | Clinical Summary ---
Author Organization [facility] Address [facility] [place] [address] Care Team Providers Care Forming Process Worker Name Role Phone Eladio Tay MD Primary Care Provider [phone] Social History Tobacco Use Types Packs/Day Years Used Date Smoking Tobacco: Never Assessed Comments Unknown Sex and Gender Information Value Date Recorded Sex Assigned at Not on file Legal Sex Female 5:59 PM [employer] Gender Identity Not on file Sexual Orientation [...] 1993 Mammogram Screening 2003 Pneumococcal Vaccine: 50+ Years (1 of 1 - PCV) 2013 Zoster Vaccines (1 of 2) 2013 COVID-19 Vaccine (1 - season) 2024 Influenza Adult (#1) 2024 12/05/2017, 01/03/2017, 01/23/2016, Additional history exists RSV Immunization or 60+ Years (1 - 1-dose 75+ series) 2038 Hepatitis A Vaccines Aged Out No long er eligible based on patient's age to complete this topic Meningococcal B Vaccine Aged Out No l onger eligible based on patient's age to complete this topic Meningococcal Vaccine Aged Out No karen maria a eligible based on patient's age to complete this topic RSV Immunizations Under 20 Months Aged Out No longer eligible based on patient's age to complete this topic Insurance [facility] Care Teams Forming Process Worker Relationship Specialty Start Date End Date Eladio Tay MD [address] [place] [id number] PCP - General INTERNAL MEDICINE 01/17/19
== END 2025-01-11 11:41 | disposition home or self-care (01) ==
LOC: CHSIMG 11:41
PROVIDERS: PCP Family Medicine; Visit Provider Nurse Practitioner Family
DX: Z12.2 Encounter for screening for malignant neoplasm of respiratory organs (principal); Z87.891 Personal history of nicotine dependence
CPT/HCPCS: 71271